=== PATIENT | female | born 1940 | race American Indian/Alaskan Native ===

== ENCOUNTER 2017-03-17 10:12 | Emergency (ER) | payer OTHER ==
[2017-03-17 10:34] VITALS: BP 138/84; PULSE 91; RESP 18; TEMP 97.9; O2SAT 97
--- NOTE | 2017-03-17 10:57 | C.PDOC ---
History Of Present Illness 76 y/o female c/o left arm pain and tingling described as "heat and tingling under her arm" for a few months. Pain is 8/10. Denies trauma or weakness. Time Seen by Provider: 03/17/17 10:50 Chief Complaint (Nursing): Upper Extremity Problem/Injury History Per: Patient History/Exam Limitations: no limitations Onset/Duration Of Symptoms: Days (Months) Current Symptoms Are (Timing): Still Present Quality: "Pain" Severity: Moderate Pain Scale Rating Of: 8 Recent travel outside of the [place]: No Additional History Per: Patient Past Medical History Reviewed: Historical Data, Nursing Documentation, Vital Signs Vital Signs: Last Vital Signs Temp 97.9 F 03/17/17 10:28 Pulse 91 H 03/17/17 10:28 Resp 18 03/17/17 10:28 BP 138/84 03/17/17 10:28 Pulse Ox 97 03/17/17 11:34 - Medical History PMH: Deep Vein Thrombosis Denies: Anemia, Chronic Kidney Disease - [facility] Procedures ENTERAL INFUSION OF CONCENTRATED NUT. SUBSTANCES (09/08/04) LG BOWEL STOMA CLOSURE (09/08/04) OTH LYSIS-PERITONEAL ADHES (09/08/04) PART LG BOWEL EXCIS NEC (09/08/04) RIGID PROCTOSIGMOIDOSCOPY (09/08/04) Family History: States: Unknown Family Hx - Social History Hx Tobacco Use: No Hx Alcohol Use: No Hx Substance Use: No - Immunization History Hx Tetanus Toxoid Vaccination: Yes Hx Influenza Vaccination: No Hx Pneumococcal Vaccination: Yes (UNSURE) Review Of Systems Constitutional: Negative for: Other (Trauma) Musculoskeletal: Positive for: Arm Pain (left arm pain ) Neurological: Positive for: Other (left arm tingling). Negative for: Weakness Physical Exam - Physical Exam Appears: Non-toxic, No Acute Distress Skin: Warm, Dry Head: Atraumatic, Normacephalic Neck: Normal ROM, No Midline Cervical Tenderness, No Paracervical Tenderness, Supple Cardiovascular: Rhythm Regular, No Murmur Respiratory: Normal Breath Sounds, No Rales, No Rhonchi, No Wheezing Extremity: Normal ROM (Bilateral upper extremities), Capillary Refill (<2secs) Pulses: Left Radial: Normal (Good radial, distal, and ulner pulses), Right Radial: Normal Neurological/Psych: Oriented x3, Normal Speech, Normal Cognition, Normal Motor ( Bilateral upper extremities. Good radial and medial nerve strength), Other (No focal deficit) ED Course And Treatment ECG: Interpreted By Me ECG Rhythm: Sinus Rhythm ECG Interpretation: Normal, No Acute Changes Interpretation Of ECG: nsr at 93 BPM,no ectopy,no acute sttw changes,axis and intervals wnl O2 Sat by Pulse Oximetry: 97 (RA) Pulse Ox Interpretation: Normal Medical Decision Making Medical Decision Making: Impression: * Left arm pain and tingling for a few months. Plans: * EKG DDx: Radial neuropathy Disposition - Disposition Referrals: [facility] [Outside] Disposition: HOME/ ROUTINE Disposition Time: 10:51 Condition: GOOD Additional Instructions: take anti inflammatory meds,muscle relaxants as directed Prescriptions: Baclofen [Lioresal] 10 mg PO TID #30 tab Naproxen [Naprosyn] 375 mg PO BID #20 tablet Instructions: Cervical Radiculopathy (ED) Forms: [employer] (Ugandan) Print Language: SYRIAN - Clinical Impression Clinical Impression: Cervical radiculopathy at C7 - Scribe Statement The provider has reviewed the documentation as recorded by the Scribe Elsi haddad All medical record entries made by the Vaishaliibe were at my direction and personally dictated by me. I have reviewed the chart and agree that the record accurately reflects my personal performance of the history, physical exam, medical decision making, and the department course for this patient. I have also personally directed, reviewed, and agree with the discharge instructions and disposition.
--- NOTE | 2017-03-18 21:16 | CARD ---
APPROVED REPORT EKG Measurement Heart [id number] <Conclusion> Normal sinus rhythm Normal ECG
== END 2017-03-17 11:06 | disposition home or self-care (01) ==
LOC: C.ER 10:12
DX: M54.12 Radiculopathy, cervical region (principal)

== ENCOUNTER 2017-06-19 20:03 | Emergency (ER) | payer OTHER ==
[2017-06-19 20:40] VITALS: RESP 20
--- NOTE | 2017-06-19 20:41 | C.PDOC ---
History Of Present Illness 76F presents with c/o pain in her left arm and left lateral portion of her chest ONLY when she moves her left arm. Pt states pain began 4 days ago and took Tylenol with no relief. Denies nausea, vomiting, fever or hx of smoking. Time Seen by Provider: 06/19/17 20:30 Chief Complaint (Nursing): Upper Extremity Problem/Injury History Per: Patient History/Exam Limitations: no limitations Onset/Duration Of Symptoms: Days (4) Current Symptoms Are (Timing): Still Present Quality: "Pain" Exacerbating Factor(s): Movement Recent travel outside of the [facility]: No Past Medical History Reviewed: Historical Data, Nursing Documentation, Vital Signs Vital Signs: Last Vital Signs Temp 98.4 F 06/19/17 20:37 Pulse 66 06/19/17 20:37 Resp 20 06/19/17 20:37 BP 164/94 H 06/19/17 20:37 Pulse Ox 99 06/19/17 23:03 - Medical History PMH: Deep Vein Thrombosis - [facility] Procedures ENTERAL INFUSION OF CONCENTRATED NUT. SUBSTANCES (09/08/04) LG BOWEL STOMA CLOSURE (09/08/04) OTH LYSIS-PERITONEAL ADHES (09/08/04) PART LG BOWEL EXCIS NEC (09/08/04) RIGID PROCTOSIGMOIDOSCOPY (09/08/04) Family History: States: Unknown Family Hx - Social History Hx Tobacco Use: No Hx Alcohol Use: No Hx Substance Use: No - Immunization History Hx Tetanus Toxoid Vaccination: Yes Hx Influenza Vaccination: No Hx Pneumococcal Vaccination: Yes (UNSURE) Review Of Systems Constitutional: Negative for: Fever Cardiovascular: Positive for: Chest Pain (left lateral portion of chest ONLY with movement of left arm) Respiratory: Negative for: Cough, Shortness of Breath Gastrointestinal: Negative for: Nausea, Vomiting, Abdominal Pain, Diarrhea Musculoskeletal: Positive for: Arm Pain (left arm ONLY whith movement) Neurological: Negative for: Weakness, Numbness, Change in Speech Physical Exam - Physical Exam Appears: Well, Non-toxic Skin: Warm, Dry Head: Atraumatic, Normacephalic Eye(s): bilateral: Normal Inspection Oral Mucosa: Moist Neck: Supple Chest: Symmetrical, Tenderness (Reducible pain with palpatation over left anterior lateral chest wall) Cardiovascular: Rhythm Regular Respiratory: No Accessory Muscle Use, No Rales, No Rhonchi, No Wheezing Gastrointestinal/Abdominal: Soft, No Tenderness Extremity: Tenderness (Left arm; ONLY with ROM of left arm) Neurological/Psych: Oriented x3, Normal Speech, Normal Cognition, Other (no focal deficits) ED Course And Treatment - Laboratory Results Result Diagrams: 06/19/17 21:51 06/19/17 21:51 O2 Sat by Pulse Oximetry: 99 (RA) Pulse Ox Interpretation: Normal Medical Decision Making Medical Decision Making: EKG Results: Sinus bradycardic at 56bpm. Normal axis. Normal intervals. No acute ischemia. cxr- naf 1215 the pt is resting quietly, no distress. I disc results with her and her daughter. given her pain is reproducible, only occurs with movement, and her studies here are unremarkable, I feel she can be safely discharged with close follow up. return precautions advised. EXAM: CT Angiography Chest With Intravenous Contrast EXAM DATE/TIME: 06/19/2017 9:39 PM CLINICAL HISTORY: 76 years old, female; Pain; Chest pain; Type not specified; Additional info: Cp HX dvt R/O pe TECHNIQUE: Axial computed tomographic angiography images of the chest with intravenous contrast using pulmonary embolism protocol. All CT scans at this facility use one or more dose reduction techniques, viz.: automated exposure control; ma/kV adjustment per patient size (including targeted exams where dose is matched to indication; i.e. head); or iterative reconstruction technique. MIP reconstructed images were created and reviewed. Coronal and sagittal reformatted images were created and reviewed. CONTRAST: 100 mL of [id number] administered intravenously. COMPARISON: Prior images are not available for review. Correlation is made with the report dated 11/18/14 FINDINGS: Heart, aorta and Pulmonary arteries: Heart size is normal.There is trace fluid in pericardial recesses.There is no aneurysm or dissection. There is perfusion of the arch vessels.There are no pulmonary emboli. Page 2 of 2 Lungs and pleural spaces: Trachea and main bronchi are patent.There is no pneumothorax. There is dependent atelectasis. There is focal elevation the right diaphragm with compressive atelectasis in the right middle lobe and portions of the right lower lobe. There is a 1.5 x 1 cm nodular opacity in the periphery of the lingula. There is minimal left retrocardiac atelectasis/ scarring. There are no effusions. Mediastinum: There are mildly prominent mediastinal nodes. There are no enlarged hilar nodes. The esophagus is unremarkable. There is a hiatal hernia. Thyroid: Thyroid is not optimally demonstrated. Bones/joints: Bony structures are osteopenic. There are degenerative changes. Soft tissues: unremarkable Upper abdomen: There are no acute abnormalities in the visualized portion of the abdomen. IMPRESSION: No aneurysm, dissection or pulmonary embolus; elevated right diaphragm with compressive atelectasis in right middle and lower lobes; persistent nodular opacity in the lingula, similar findings reported 11/18/14 Additional nonemergent findings as described above. No follow-up is necessary for patients with low or high risk of malignancy. Thank you for allowing us to participate in the care of your patient. Dictated and Authenticated by: Ghazala George MD 06/20/2017 12:05 AM Eastern Time ([place] & [place]) Disposition - Disposition Referrals: Pedro Oliva MD [Medical Doctor] - Disposition: HOME/ ROUTINE Disposition Time: 00:17 Condition: GOOD Additional Instructions: Please follow up with your doctor in the next week. Return to the ER for any worsening symptoms or for any other concerns. Prescriptions: Naproxen [Naprosyn] 500 mg PO Q12H PRN #10 tablet PRN Reason: Pain, Moderate (4-7) Instructions: Chest Pain (ED), Chest Wall Pain (ED) Forms: [facility] (Thai), General Discharge Instructions - Clinical Impression Clinical Impression: Chest pain - Scribe Statement The provider has reviewed the documentation as recorded by the Vaishaliibsherry Bledsoe All medical record entries made by the Vaishaliibsherry were at my direction and personally dictated by me. I have reviewed the chart and agree that the record accurately reflects my personal performance of the history, physical exam, medical decision making, and the department course for this patient. I have also personally directed, reviewed, and agree with the discharge instructions and disposition.
[2017-06-19 22:06] LABS: CALCIUM 7.8 mg/dl (8.6-10.4); GFR AFRICAN-AMERICAN > 60; GFR NON-AFRICAN AMERICAN > 60
[2017-06-19 22:18] LABS: ALB/GLOB RATIO 1.2 (1.0-2.1); ALBUMIN 3.6 g/dL (3.5-5.0); ALT/SGPT 21 U/L (9-52); AST/SGOT 32 U/L (14-36); BLOOD UREA NITROGEN 15 mg/dL (7-17)
[2017-06-19] MEDS ORDERED: Iodixanol 320 MG/ML 100 ML BOTTLE IV ONE (22:36)
[2017-06-19 23:02] LABS: BASO % 0.8 % (0.0-2.0); EOS # 0.1 K/uL (0.0-0.7); HEMOGLOBIN 11.9 g/dL (11.0-16.0); LYMPH # 2.3 K/uL (1.0-4.3); LYMPH % 46.1 % (20.0-40.0); MEAN CELL VOLUME 77.2 fL (81.0-99.0); MEAN CORPUSCULAR HEMOGLOBIN 25.6 pg (27.0-31.0); MEAN CORPUSCULAR HGB CONC 33.2 g/dL (33.0-37.0); MEAN PLATELET VOLUME 9.8 fL (7.2-11.7); MONO # 0.4 K/uL (0.0-0.8); MONO % 8.6 % (0.0-10.0); NEUT # 2.1 K/uL (1.8-7.0); NEUT % 42.5 % (50.0-75.0); NRBC % 0.3 % (0.0-2.0); RBC 4.66 Mil/uL (3.80-5.20); RED CELL DISTRIBUTION WIDTH 16.7 % (11.5-14.5); WHITE BLOOD COUNT 5.1 K/uL (4.8-10.8)
--- NOTE | 2017-06-20 00:06 | CT ---
EXAM: CT Angiography Chest With Intravenous Contrast EXAM DATE/TIME: 06/19/2017 9:39 PM CLINICAL HISTORY: 76 years old, female; Pain; Chest pain; Type not specified; Additional info: Cp HX dvt R/O pe TECHNIQUE: Axial computed tomographic angiography images of the chest with intravenous contrast using pulmonary embolism protocol. All CT scans at this facility use one or more dose reduction techniques, viz.: automated exposure control; ma/kV adjustment per patient size (including targeted exams where dose is matched to indication; i.e. head); or iterative reconstruction technique. MIP reconstructed images were created and reviewed. Coronal and sagittal reformatted images were created and reviewed. CONTRAST: 100 mL of [id number] administered intravenously. COMPARISON: Prior images are not available for review. Correlation is made with the report dated 11/18/14 FINDINGS: Heart, aorta and Pulmonary arteries: Heart size is normal.There is trace fluid in pericardial recesses.There is no aneurysm or dissection. There is perfusion of the arch vessels.There are no pulmonary emboli. Lungs and pleural spaces: Trachea and main bronchi are patent.There is no pneumothorax. There is dependent atelectasis. There is focal elevation the right diaphragm with compressive atelectasis in the right middle lobe and portions of the right lower lobe. There is a 1.5 x 1 cm nodular opacity in the periphery of the lingula. There is minimal left retrocardiac atelectasis/scarring. There are no effusions. Mediastinum: There are mildly prominent mediastinal nodes. There are no enlarged hilar nodes. The esophagus is unremarkable. There is a hiatal hernia. Thyroid: Thyroid is not optimally demonstrated. Bones/joints: Bony structures are osteopenic. There are degenerative changes. Soft tissues: unremarkable Upper abdomen: There are no acute abnormalities in the visualized portion of the abdomen. IMPRESSION: No aneurysm, dissection or pulmonary embolus; elevated right diaphragm with compressive atelectasis in right middle and lower lobes; persistent nodular opacity in the lingula, similar findings reported 11/18/14 Additional nonemergent findings as described above. No follow-up is necessary for patients with low or high risk of malignancy.
[2017-06-20 00:59] VITALS: BP 162/98; PULSE 75; TEMP 97.5; O2SAT 98
--- NOTE | 2017-06-20 08:33 | RAD ---
HISTORY: Chest pain COMPARISON: 05/04/2016 TECHNIQUE: Chest PA and lateral FINDINGS: LUNGS: No active pulmonary disease. PLEURA: No significant pleural effusion identified. No pneumothorax apparent. CARDIOVASCULAR: Normal. OSSEOUS STRUCTURES: No significant abnormalities. VISUALIZED UPPER ABDOMEN: Normal. OTHER FINDINGS: None. IMPRESSION: No active disease. No significant interval change compared to the prior examination(s).
--- NOTE | 2017-06-21 14:28 | CARD ---
APPROVED REPORT EKG Measurement Heart [id number] <Conclusion> Sinus bradycardia Otherwise normal ECG
== END 2017-06-20 01:08 | disposition home or self-care (01) ==
LOC: C.ER 20:03
DX: R07.9 Chest pain, unspecified (principal)
CPT/HCPCS: 71046; 71275; 80053; 84484; 85025; 93005; 96374; 99285; J1885; Q9967

== ENCOUNTER 2018-01-03 21:29 | Emergency (ER) | payer OTHER ==
[2018-01-03 22:27] VITALS: BP 136/87; PULSE 78; RESP 16; TEMP 97.8; O2SAT 99
--- NOTE | 2018-01-03 23:10 | C.PDOC ---
History Of Present Illness 77 y/o female presented to ED c/o right arm and right neck pain for the past few days. Neck pain exacerbated with movement of the right arm, described as a pulling tightness to area. Patient denies sore throat, URI sx, trauma, weakness , numbness, chest pain, shortness of breath. Time Seen by Provider: 01/03/18 22:39 Chief Complaint (Nursing): Upper Extremity Problem/Injury History Per: Patient History/Exam Limitations: no limitations Onset/Duration Of Symptoms: Days Current Symptoms Are (Timing): Still Present Quality: "Pain" Exacerbating Factor(s): Movement Recent travel outside of the [place]: No Past Medical History Reviewed: Historical Data, Nursing Documentation, Vital Signs Vital Signs: Last Vital Signs Temp 97.8 F 01/03/18 22:23 Pulse 78 01/03/18 22:23 Resp 16 01/03/18 22:23 BP 136/87 01/03/18 22:23 Pulse Ox 99 01/04/18 02:37 - Medical History PMH: Deep Vein Thrombosis Denies: Anemia, Chronic Kidney Disease Surgical History: No Surg Hx - [facility] Procedures ENTERAL INFUSION OF CONCENTRATED NUT. SUBSTANCES (09/08/04) LG BOWEL STOMA CLOSURE (09/08/04) OTH LYSIS-PERITONEAL ADHES (09/08/04) PART LG BOWEL EXCIS NEC (09/08/04) RIGID PROCTOSIGMOIDOSCOPY (09/08/04) Family History: States: No Known Family Hx - Social History Hx Tobacco Use: No Hx Alcohol Use: Yes Hx Substance Use: No - Immunization History Hx Tetanus Toxoid Vaccination: Yes Hx Influenza Vaccination: No Hx Pneumococcal Vaccination: Yes (UNSURE) Review Of Systems Cardiovascular: Negative for: Chest Pain Respiratory: Negative for: Shortness of Breath Neurological: Negative for: Weakness, Numbness Physical Exam - Physical Exam Appears: Non-toxic Skin: Normal Color, Warm, Dry Head: Atraumatic, Normacephalic Eye(s): bilateral: Normal Inspection Throat: Normal Neck: Paracervical Tenderness (lateral right neck), No Other (palpable mass, swelling or erythema) Lymphatic: No Adenopathy Chest: Symmetrical, No Tenderness Cardiovascular: Rhythm Regular Respiratory: Normal Breath Sounds, No Rales, No Rhonchi, No Wheezing Extremity: Normal ROM (x4), Capillary Refill (<2 seconds), Other (ROM right arm causes pain) Pulses: Left Radial: Normal, Right Radial: Normal Neurological/Psych: Oriented x3, Normal Speech, Normal Motor, Normal Sensation Gait: Steady ED Course And Treatment O2 Sat by Pulse Oximetry: 99 (RA) Pulse Ox Interpretation: Normal Progress Note: Flexeril and motrin were ordered. Patient is resting comfortably , tolerating PO, with no numbness or weakness of the extremities. Will discharge home with instructions to follow up with PMD. Patient accompanied by relative and was discharged under care of relative. Disposition Counseled Patient/Family Regarding: Diagnosis, Need For Followup, Rx Given - Disposition Referrals: Private doctor, PMD [Other] Disposition: HOME/ ROUTINE Disposition Time: 23:07 Condition: STABLE Additional Instructions: Take medications as prescribed for pain Apply warm compress to area Return to ER if worse Prescriptions: Cyclobenzaprine [Cyclobenzaprine HCl] 10 mg PO HS #4 tab Ibuprofen [Motrin] 600 mg PO Q8 #14 tab Instructions: Neck Sprain (DC) Forms: [employer] (Togolese) - Clinical Impression Clinical Impression: Cervical muscle strain - PA / [employer] / Resident Statement MD/DO has reviewed & agrees with the documentation as recorded. - Scribe Statement The provider has reviewed the documentation as recorded by the Scribe Ricky Sharma All medical record entries made by the Mitchel were at my direction and personally dictated by me. I have reviewed the chart and agree that the record accurately reflects my personal performance of the history, physical exam, medical decision making, and the department course for this patient. I have also personally directed, reviewed, and agree with the discharge instructions and disposition.
== END 2018-01-03 23:33 | disposition home or self-care (01) ==
LOC: C.ER 21:29
DX: S16.1XXA Strain of muscle, fascia and tendon at neck level, initial encounter (principal); X58.XXXA Exposure to other specified factors, initial encounter; Y92.9 Unspecified place or not applicable

== ENCOUNTER 2018-01-20 18:03 | Inpatient (IN) | payer OTHER ==
[2018-01-20 18:29] VITALS: BMI 43.4
--- NOTE | 2018-01-20 19:16 | C.PDOC ---
"History Of Present Illness 77 y/o female brought to ER by ambulance for evaluation of shortness of breath which occurred in the afternoon today. Patient states that she has history of blood clots and she is taking Aspirin. Denies having chest pain, fever, and chills. Of note, patient reports that she has history of colon cancer in remission after chemotherapy and surgery. Time Seen by Provider: 01/20/18 18:32 Chief Complaint (Nursing): Shortness Of Breath History Per: Patient History/Exam Limitations: no limitations Onset/Duration Of Symptoms: Hrs Current Symptoms Are (Timing): Still Present Severity: Moderate Past Medical History Reviewed: Historical Data, Nursing Documentation, Vital Signs Vital Signs: Last Vital Signs Temp 98.2 F 01/20/18 22:53 Pulse 112 H 01/20/18 22:53 Resp 28 H 01/20/18 22:53 BP 172/102 H 01/20/18 22:39 Pulse Ox 96 01/20/18 22:39 - Medical History PMH: Deep Vein Thrombosis Denies: Anemia, Chronic Kidney Disease Other Surgeries: Hx of surgeries - [facility] Procedures ENTERAL INFUSION OF CONCENTRATED NUT. SUBSTANCES (09/08/04) LG BOWEL STOMA CLOSURE (09/08/04) OTH LYSIS-PERITONEAL ADHES (09/08/04) PART LG BOWEL EXCIS NEC (09/08/04) RIGID PROCTOSIGMOIDOSCOPY (09/08/04) Family History: States: No Known Family Hx - Social History Hx Tobacco Use: No Hx Alcohol Use: Yes Hx Substance Use: No - Immunization History Hx Tetanus Toxoid Vaccination: Yes Hx Influenza Vaccination: Yes Hx Pneumococcal Vaccination: No (UNSURE) Review Of Systems Except As Marked, All Systems Reviewed And Found Negative. Constitutional: Negative for: Fever, Chills Cardiovascular: Negative for: Chest Pain Respiratory: Positive for: Shortness of Breath. Negative for: Cough Physical Exam - Physical Exam Appears: Non-toxic, No Acute Distress Skin: Normal Color, Warm, Dry Head: Atraumatic, Normacephalic Eye(s): bilateral: Normal Inspection Nose: Normal Oral Mucosa: Moist Neck: Supple Chest: Symmetrical Cardiovascular: Rhythm Regular Respiratory: Normal Breath Sounds, No Rales, No Rhonchi, No Wheezing Gastrointestinal/Abdominal: Normal Exam, Soft, No Tenderness, No Guarding, No Rebound Extremity: Normal ROM, Tenderness (left calf tenderness) Neurological/Psych: Oriented x3, Normal Speech ED Course And Treatment - Laboratory Results Result Diagrams: 01/20/18 19:32 01/20/18 19:32 ECG: Interpreted By Me ECG Rhythm: Sinus Tachycardia Interpretation Of ECG: TWI lateral leads, normal intervals, normal axis Rate From EC O2 Sat by Pulse Oximetry: 91 (RA) Pulse Ox Interpretation: Abnormal - CT Scan/US CTA Chest Other Rad Studies (CT/US): Read By Radiologist CT/US Interpretation: [facility]. [facility] Radiology [facility]. Preliminary Radiology Report with Addendum Call: [phone]. assistance Online chat: [email or web address]. Name: THIERNO JOHNSTON Age: 77Years F Date: 2017. Requesting Physician: Noemy Worley : 1940. [facility] Procedure Ordered As Accession Number of Images. CTA CHEST CT ANGIO CHEST PE PROTOCOL [id number]. Provided Clinical History: SOB. Addendum created by Keven Holley DO on 01/20/2018 9:13 PM Eastern Time ([place]). THIS REPORT CONTAINS FINDINGS THAT MAY BE CRITICAL TO PATIENT CARE. The findings. were verbally communicated via telephone conference with Noemy Worley at 9:13 PM EDT on. 01/20/2018. The findings were acknowledged and understood. Initial Report created on 01/20/2018 9:01 PM Eastern Time ([place]). EXAM: CT Angiography Chest With Intravenous Contrast. CLINICAL HISTORY: 77 years old, female; Signs and symptoms; Shortness of breath; Additional info: SOB. TECHNIQUE: Axial computed tomographic angiography images of the chest with intravenous contrast using. pulmonary embolism protocol. All CT scans at this facility use at least one of these dose optimization. techniques: automated exposure control; mA and/or kV adjustment per patient size (includes targeted. exams where dose is matched to clinical indication); or iterative reconstruction. MIP reconstructed images were created and reviewed. Coronal and sagittal reformatted images were created and reviewed. CONTRAST: 100 mL of visipaque 320 administered intravenously. COMPARISON: No relevant prior studies available. FINDINGS: Pulmonary arteries : Large filling defect within the distal left main pulmonary artery extending into. both the upper and lower lobe lobar arteries. Subsegmental pulmonary filling defect within the apical. posterior segment left upper lobe (axial image 81). Aorta: No acute findings. No thoracic aortic aneurysm. Lungs: Filling defect within the right upper lobe lobar artery extending into the anterior, posterior,. and apical segmental pulmonary arteries. Filling defects within the right middle lobe medial and. lateral segmental pulmonary arteries. Additional filling defect within the inferior lingular segment left. THIERNO JOHNSTON | Preliminary Radiology Report. CONFIDENTIALITY STATEMENT. This report is intended only for the use of the referring physician, and only in accordance with law, If you received this in error, call [phone]. Page 2 of 2. upper lobe segmental artery. Filling defects in the left lower lobe lobar pulmonary artery extending. into the proximal anteromedial, posterior, and lateral basilar segmental left lower lobe pulmonary. arteries. Subpleural reticular opacities within the dependent aspect of the lower lobes may represent. subsegmental atelectasis or scarring. Biapical scarring. 3 mm solid left lower lobe pulmonary nodule. (axial image 73 ). Pleural space: Normal. No significant effusion. No pneumothorax. Heart: Findings suggestive of right heart strain with RV/LV ratio of 1.2. No pericardial effusion. Mediastinum: A moderate hiatal hernia is present. Bones/ joints: Osteoarthrosis at both glenohumeral and acromioclavicular joints. Diffuse thoracic. spondylosis. No acute osseous abnormality. No dislocation. Soft tissues: Normal. Lymph nodes: Normal. No enlarged lymph nodes. IMPRESSION : 1. Multiple pulmonary arterial filling defects consistent with pulmonary emboli. These involve the. distal left main, right and left lobar, and several segmental and subsegmental pulmonary arteries as. described above. 2. Evidence of right heart strain with RV/LV ratio of 1.2. 3. Solid left lower lobe pulmonary nodule measuring 3 mm. For low-risk patients, no follow-up is. necessary. For high-risk patients (smoking history or other known risk factors) an optional chest CT. at 12 months could be performed. 4. Other nonacute findings as detailed above. Thank you for allowing us to participate in the care of your patient. Dictated and Authenticated by: Keven Holley DO. 2017 9:01 PM Eastern Time ([place]) Medical Decision Making Medical Decision Making: Plan: --Labs --ECG --CT- Angio Chest Patient placed on 2L O2 via NC. Pulse ox 95-96% on O2, and patient states that she feels better. Labs done. Creatinine normal for CTA. CTA chest done as patient is at risk for PE given history of cancer and of DVT' s not on anticoagulants. 2112- [facility] called to discuss CTA results, bilateral PE noted. heparin 5000u bolus and 18u/kg/hr gtt ordered. Results and need for admission discussed with patient. Case discussed with Dr. Garnett admitting for Dr. Oliva. Would like patient admitted to ICU, and Dr. Marinelli for pulm consult. Case discussed with Dr. Cespedes who accepts the patient. Advised calling IR as well. On re-eval, vitals- BP 136 systolic. Pulse ox 95% on 2L O2. HR 120's. Case discussed with Dr. Marinelli for pulm consult. Case discussed with IR Dr. Stanford, after reviewing the patient's CTA images he does not feel that she is a good candidate for intervention as she does not have enough occlusive clot burden. Can be re-consulted if necessary. Disposition - Disposition Disposition: HOSPITALIZED Disposition Time: 22:11 Condition: FAIR - Clinical Impression Clinical Impression: Bilateral pulmonary embolism - Scribe Statement The provider has reviewed the documentation as recorded by the Mitchel Neil Provider Attestation: All medical record entries made by the Vaishaliibsherry were at my direction and personally dictated by me. I have reviewed the chart and agree that the record accurately reflects my personal performance of the history, physical exam, medical decision making, and the department course for this patient. I have also personally directed, reviewed, and agree with the discharge instructions and disposition."
[2018-01-20 19:38] LABS: BASO % 0.6 % (0.0-2.0); EOS % 0.6 % (0.0-4.0); HEMOGLOBIN 12.8 g/dL (11.0-16.0); LYMPH # 1.5 K/uL (1.0-4.3); MEAN CORPUSCULAR HEMOGLOBIN 24.9 pg (27.0-31.0); MEAN CORPUSCULAR HGB CONC 32.3 g/dL (33.0-37.0); MEAN PLATELET VOLUME 8.8 fL (7.2-11.7); MONO # 0.4 K/uL (0.0-0.8); MONO % 6.3 % (0.0-10.0); NEUT # 4.4 K/uL (1.8-7.0); NEUT % 68.5 % (50.0-75.0); NRBC % 0.2 % (0.0-2.0); RBC 5.14 Mil/uL (3.80-5.20); WHITE BLOOD COUNT 6.4 K/uL (4.8-10.8)
[2018-01-20 19:49] LABS: ALB/GLOB RATIO 1.3 (1.0-2.1); ALBUMIN 4.2 g/dL (3.5-5.0); ALT/SGPT 23 U/L (9-52); AST/SGOT 28 U/L (14-36); BLOOD UREA NITROGEN 18 mg/dL (7-17); GFR AFRICAN-AMERICAN > 60; GFR NON-AFRICAN AMERICAN > 60
[2018-01-20] MEDS ORDERED: Iodixanol 320 MG/ML 100 ML BOTTLE IV ONE (20:05)
[2018-01-20] MEDS ORDERED: Sodium Chloride 0.9% 1,000 ML ONE (20:39)
[2018-01-20] MEDS ORDERED: Heparin25000 units/250ml 1/2NS 25,000 UNITS/250 ML BAG IV PRN (21:15)
[2018-01-20] MEDS ORDERED: Heparin 5,000 UNITS in Sodium Chloride 0.9% 500 ML IV ONE (21:16)
[2018-01-20 21:48] LABS: INR 1.1; PROTHROMBIN TIME 12.2 SECONDS (9.7-12.2)
[2018-01-20 22:46] LABS: SQUAMOUS EPITHIAL < 1 /hpf (0-5); URINE BACTERIA RARE (<OCC); URINE BILIRUBIN NEGATIVE (NEGATIVE); URINE BLOOD NEGATIVE (NEGATIVE); URINE CLARITY Clear (Clear); URINE COLOR Colorless (YELLOW); URINE GLUCOSE (UA) NORMAL (Normal); URINE LEUKOCYTE ESTERASE NEG Leu/uL (Negative); URINE PROTEIN NEGATIVE (NEGATIVE); URINE UROBILINOGEN NORMAL mg/dL (0.2-1.0)
--- NOTE | 2018-01-20 22:55 | CP.CCUPN ---
"CCU Subjective - Physician Review Subjective (Free Text): 01/20/18 The Patient was seen and examined at the bedside, Medical records reviewed, and management issues were discussed and formulated with the house staff. Events reviewed 77 Y/O F with previous history of femoral vein Deep Vein Thrombosis and history of colon cancer in remission S/P chemotherapy and surgery Who was brought to ER by ambulance for evaluation of shortness of breath which occurred in the afternoon today. Patient states that she has history of blood clots and she is taking Aspirin. In the ER, she underwent Chest Ct angiogram showing Multiple pulmonary arterial filling defects consistent with pulmonary emboli. Vital sighs stable except for tachycardia with HR 110s, SBP 150s and saturation 92-98% on nasal cannula Denies having chest pain, fever/chills, leg pain or swellings. She received 5000U IV Heparin bolus, started on Heparin drip. IR consulted in the ER ror the acute non-occlusive PE with RV strain and the possible role of catheter directed TPA, will hold off fow now, Patient Clinically and hemodynamically stable Will call for EKOS in AM Pt AAO x3. Alert, follows commands, speaks full sentence Breathing unlabored. Other Rad Studies (CT/US): Read By Radiologist CT/US Interpretation: [facility]. [facility] Radiology [facility]. Preliminary Radiology Report with Addendum Call: [phone]. assistance Online chat: [email or web address]. Name: THIERNO JOHNSTON Age: 77Years F Date: 2017. Requesting Physician: Noemy Worley : 1940. [facility] Procedure Ordered As Accession Number of Images. CTA CHEST CT ANGIO CHEST PE PROTOCOL [id number]. Provided Clinical History: SOB. Addendum created by Keven Holley DO on 01/20/2018 9:13 PM Eastern Time ([place]). THIS REPORT CONTAINS FINDINGS THAT MAY BE CRITICAL TO PATIENT CARE. The findings. were verbally communicated via telephone conference with Noemy Worley at 9:13 PM EDT on. 01/20/2018. The findings were acknowledged and understood. Initial Report created on 01/20/2018 9:01 PM Eastern Time ([place]). EXAM: CT Angiography Chest With Intravenous Contrast. CLINICAL HISTORY: 77 years old, female; Signs and symptoms; Shortness of breath; Additional info: SOB. TECHNIQUE: Axial computed tomographic angiography images of the chest with intravenous contrast using. pulmonary embolism protocol. All CT scans at this facility use at least one of these dose optimization. techniques: automated exposure control; mA and/or kV adjustment per patient size (includes targeted. exams where dose is matched to clinical indication); or iterative reconstruction. MIP reconstructed images were created and reviewed. Coronal and sagittal reformatted images were created and reviewed. CONTRAST: 100 mL of visipaque 320 administered intravenously. COMPARISON: No relevant prior studies available. FINDINGS: Pulmonary arteries : Large filling defect within the distal left main pulmonary artery extending into. both the upper and lower lobe lobar arteries. Subsegmental pulmonary filling defect within the apical. posterior segment left upper lobe (axial image 81). Aorta: No acute findings. No thoracic aortic aneurysm. Lungs: Filling defect within the right upper lobe lobar artery extending into the anterior, posterior,. and apical segmental pulmonary arteries. Filling defects within the right middle lobe medial and. lateral segmental pulmonary arteries. Additional filling defect within the inferior lingular segment left. THIERNO JOHNSTON | Preliminary Radiology Report. CONFIDENTIALITY STATEMENT. This report is intended only for the use of the referring physician, and only in accordance with law, If you received this in error, call [phone]. Page 2 of 2. upper lobe segmental artery. Filling defects in the left lower lobe lobar pulmonary artery extending. into the proximal anteromedial, posterior, and lateral basilar segmental left lower lobe pulmonary. arteries. Subpleural reticular opacities within the dependent aspect of the lower lobes may represent. subsegmental atelectasis or scarring. Biapical scarring. 3 mm solid left lower lobe pulmonary nodule. (axial image 73 ). Pleural space: Normal. No significant effusion. No pneumothorax. Heart: Findings suggestive of right heart strain with RV/LV ratio of 1.2. No pericardial effusion. Mediastinum: A moderate hiatal hernia is present. Bones/ joints: Osteoarthrosis at both glenohumeral and acromioclavicular joints. Diffuse thoracic. spondylosis. No acute osseous abnormality. No dislocation. Soft tissues: Normal. Lymph nodes: Normal. No enlarged lymph nodes. IMPRESSION : 1. Multiple pulmonary arterial filling defects consistent with pulmonary emboli. These involve the. distal left main, right and left lobar, and several segmental and subsegmental pulmonary arteries as. described above. 2. Evidence of right heart strain with RV/LV ratio of 1.2. 3. Solid left lower lobe pulmonary nodule measuring 3 mm. For low-risk patients, no follow-up is. necessary. For high-risk patients (smoking history or other known risk factors) an optional chest CT. at 12 months could be performed. 4. Other nonacute findings as detailed above. Thank you for allowing us to participate in the care of your patient. Dictated and Authenticated by: Keven Holley DO. 2017 9:01 PM Eastern Time ([place]) CCU Objective - Vital Signs / Intake & Output Vital Signs (Last 4 hours): Vital Signs Pulse Resp BP Pulse Ox 01/20/18 22:39 114 H 35 H 172/102 H 96 01/20/18 22:07 115 H 33 H 166/103 H 95 01/20/18 21:42 91 L 01/20/18 20:34 103 H 20 135/91 H 94 L Intake and Output (Last 8hrs): Intake & Output 01/20/18 01/20/18 01/20/18 06:59 14:59 22:59 Weight 230 lb - Physical Exam Physical Exam Limitations: Positive for: Clinical Condition Head: Positive for: Atraumatic, Normocephalic Pupils: Positive for: PERRL. Negative for: Sluggish, Non-Reactive Extroacular Muscles: Positive for: EOMI. Negative for: Gaze Palsy, Entrapment Conjunctiva: Positive for: Normal. Negative for: Injected, Icteric Mouth: Positive for: Moist Mucous Membranes Pharnyx: Positive for: Normal Nose (Internal): Positive for: Normal Inspection Neck: Positive for: Normal Range of Motion, Trachea Midline. Negative for: Meningeal Signs, MIDLINE TENDERNESS, Paraspinal Tenderness, JVD, Lymphadenopathy , Bruit, Other Respiratory/Chest: Positive for: Clear to Auscultation, Good Air Exchange, Decreased Breath Sounds. Negative for: Respiratory Distress, Accessory Muscle Use, Wheezes, Rales, Retracting, Rhonchi, Tachypneic Cardiovascular: Positive for: Regular Rate and Rhythm, Normal S1, S2, Peripheal Pulses Present, Tachycardic. Negative for: Murmurs, Irregular Rhythm, Bradycardic Abdomen: Positive for: Normal Bowel Sounds. Negative for: Tenderness, Distention, Peritoneal Signs, Rebound, Guarding Upper Extremity: Positive for: Normal Inspection, NORMAL PULSES, Capillary Refill < 2s. Negative for: Cyanosis, Edema Lower Extremity: Positive for: Edema, NORMAL PULSES, Capillary Refill < 2 s. Negative for: Normal Inspection, CALF TENDERNESS Neurological: Positive for: GCS=15, CN II-XII Intact, Speech Normal, Motor Func Grossly Intact, Normal Sensory Function Psychiatric: Positive for: Alert, Oriented x 3, Normal Insight - Medications Active Medications: Active Medications Generic Name Dose Route Start Last Admin Trade Name Freq PRN Reason Stop Dose Admin Heparin Sodium/Sodium Chloride 25,000 units in 250 mls @ 18.779 mls/hr 21:15 01/20/18 21:42 Heparin 04898 Units/250ml 1/2 Normal Saline IV 18.779 mls/hr .[id number] PRN Administration ADJUST RATE PER PROTOCOL Protocol 18 UNITS/KG/HR - Patient Studies Lab Studies: Lab Studies 01/20/18 01/20/18 01/20/18 Range/Units 22:28 21:22 19:32 WBC (4.8-10.8) K/uL RBC (3.80-5.20) Mil/uL Hgb (11.0-16.0) g/dL Hct (34.0-47.0) % MCV (81.0-99.0) fL MCH (27.0-31.0) pg MCHC (33.0-37.0) g/dL RDW (11.5-14.5) % Plt Count (130-400) K/uL MPV (7.2-11.7) fL Neut % (Auto) (50.0-75.0) % Lymph % (Auto) (20.0-40.0) % Garrett % (Auto) (0.0-10.0) % Eos % (Auto) (0.0-4.0) % Baso % (Auto) (0.0-2.0) % Neut # (Auto) (1.8-7.0) K/uL Lymph # (Auto) (1.0-4.3) K/uL Garrett # (Auto) (0.0-0.8) K/uL Eos # (Auto) (0.0-0.7) K/uL Baso # (Auto) (0.0-0.2) K/uL PT 12.2 (9.7-12.2) SECONDS INR 1.1 APTT 33 (21-34) SECONDS Sodium 142 (132-148) mmol/L Potassium 4.3 (3.6-5.2) mmol/L Chloride 102 (98-107) mmol/L Carbon Dioxide 29 (22-30) mmol/L Anion Gap 15 (10-20) BUN 18 H (7-17) mg/dL Creatinine 0.9 (0.7-1.2) mg/dL Est GFR ( Amer) > 60 Est GFR (Non-Af Amer) > 60 Random Glucose 105 (65-105) mg/dL Calcium 9.0 (8.6-10.4) mg/dl Total Bilirubin 0.6 (0.2-1.3) mg/dL AST 28 (14-36) U/L ALT 23 (9-52) U/L Alkaline Phosphatase 108 (38-126) U/L Troponin I 0.2870 H* (0.00-0.120) ng/mL Total Protein 7.4 (6.3-8.3) g/dL Albumin 4.2 (3.5-5.0) g/dL Globulin 3.3 (2.2-3.9) gm/dL Albumin/Globulin Ratio 1.3 (1.0-2.1) Urine Color Colorless (YELLOW) Urine Clarity Clear (Clear) Urine pH 6.0 (5.0-8.0) Ur Specific [place] 1.015 (1.003-1.030) Urine Protein Negative (NEGATIVE) mg/dL Urine Glucose (UA) Normal (Normal) mg/dL Urine Ketones Negative (NEGATIVE) mg/dL Urine Blood Negative (NEGATIVE) Urine Nitrate Negative (NEGATIVE) Urine Bilirubin Negative (NEGATIVE) Urine Urobilinogen Normal (0.2-1.0) mg/dL Ur Leukocyte Esterase Neg (Negative) Sujata/uL Urine WBC (Auto) < 1 (0-5) /hpf Urine RBC (Auto) < 1 (0-3) /hpf Ur Squamous Epith Cells < 1 (0-5) /hpf Urine Bacteria Rare (<OCC) 01/20/ Range/Units 19:32 WBC 6.4 (4.8-10.8) K/uL RBC 5.14 (3.80-5.20) Mil/uL Hgb 12.8 (11.0-16.0) g/dL Hct 39.5 (34.0-47.0) % MCV 77.0 L (81.0-99.0) fL MCH 24.9 L (27.0-31.0) pg MCHC 32.3 L (33.0-37.0) g/dL RDW 17.0 H (11.5-14.5) % Plt Count 161 (130-400) K/uL MPV 8.8 (7.2-11.7) fL Neut % (Auto) 68.5 (50.0-75.0) % Lymph % (Auto) 24.0 (20.0-40.0) % Garrett % (Auto) 6.3 (0.0-10.0) % Eos % (Auto) 0.6 (0.0-4.0) % Baso % (Auto) 0.6 (0.0-2.0) % Neut # (Auto) 4.4 (1.8-7.0) K/uL Lymph # (Auto) 1.5 (1.0-4.3) K/uL Garrett # (Auto) 0.4 (0.0-0.8) K/uL Eos # (Auto) 0.0 (0.0-0.7) K/uL Baso # (Auto) 0.0 (0.0-0.2) K/uL PT (9.7-12.2) SECONDS INR APTT (21-34) SECONDS Sodium (132-148) mmol/L Potassium (3.6-5.2) mmol/L Chloride (98-107) mmol/L Carbon Dioxide (22-30) mmol/L Anion Gap (10-20) BUN (7-17) mg/dL Creatinine (0.7-1.2) mg/dL Est GFR ( Amer) Est GFR (Non-Af Amer) Random Glucose (65-105) mg/dL Calcium (8.6-10.4) mg/dl Total Bilirubin (0.2-1.3) mg/dL AST (14-36) U/L ALT (9-52) U/L Alkaline Phosphatase (38-126) U/L Troponin I (0.00-0.120) ng/mL Total Protein (6.3-8.3) g/dL Albumin (3.5-5.0) g/dL Globulin (2.2-3.9) gm/dL Albumin/Globulin Ratio (1.0-2.1) Urine Color (YELLOW) Urine Clarity (Clear) Urine pH (5.0-8.0) Ur Specific [place] (1.003-1.030) Urine Protein (NEGATIVE) mg/dL Urine Glucose (UA) (Normal) mg/dL Urine Ketones (NEGATIVE) mg/dL Urine Blood (NEGATIVE) Urine Nitrate (NEGATIVE) Urine Bilirubin (NEGATIVE) Urine Urobilinogen (0.2-1.0) mg/dL Ur Leukocyte Esterase (Negative) Sujata/uL Urine WBC (Auto) (0-5) /hpf Urine RBC (Auto) (0-3) /hpf Ur Squamous Epith Cells (0-5) /hpf Urine Bacteria (<OCC) Laboratory Results - last 24 hr 01/20/18 01/20/18 01/20/18 19:32 19:32 21:22 WBC 6.4 RBC 5.14 Hgb 12.8 Hct 39.5 MCV 77.0 L MCH 24.9 L MCHC 32.3 L RDW 17.0 H Plt Count 161 MPV 8.8 Neut % (Auto) 68.5 Lymph % (Auto) 24.0 Garrett % (Auto) 6.3 Eos % (Auto) 0.6 Baso % (Auto) 0.6 Neut # (Auto) 4.4 Lymph # (Auto) 1.5 Garrett # (Auto) 0.4 Eos # (Auto) 0.0 Baso # (Auto) 0.0 PT 12.2 INR 1.1 APTT 33 Sodium 142 Potassium 4.3 Chloride 102 Carbon Dioxide 29 Anion Gap 15 BUN 18 H Creatinine 0.9 Est GFR ( Amer) > 60 Est GFR (Non-Af Amer) > 60 Random Glucose 105 Calcium 9.0 Total Bilirubin 0.6 AST 28 ALT 23 Alkaline Phosphatase 108 Troponin I 0.2870 H* Total Protein 7.4 Albumin 4.2 Globulin 3.3 Albumin/Globulin Ratio 1.3 Urine Color Urine Clarity Urine pH Ur Specific [place] Urine Protein Urine Glucose (UA) Urine Ketones Urine Blood Urine Nitrate Urine Bilirubin Urine Urobilinogen Ur Leukocyte Esterase Urine WBC (Auto) Urine RBC (Auto) Ur Squamous Epith Cells Urine Bacteria 01/20/18 22:28 WBC RBC Hgb Hct MCV MCH MCHC RDW Plt Count MPV Neut % (Auto) Lymph % (Auto) Garrett % (Auto) Eos % (Auto) Baso % (Auto) Neut # (Auto) Lymph # (Auto) Garrett # (Auto) Eos # (Auto) Baso # (Auto) PT INR APTT Sodium Potassium Chloride Carbon Dioxide Anion Gap BUN Creatinine Est GFR ( Amer) Est GFR (Non-Af Amer) Random Glucose Calcium Total Bilirubin AST ALT Alkaline Phosphatase Troponin I Total Protein Albumin Globulin Albumin/Globulin Ratio Urine Color Colorless Urine Clarity Clear Urine pH 6.0 Ur Specific [place] 1.015 Urine Protein Negative Urine Glucose (UA) Normal Urine Ketones Negative Urine Blood Negative Urine Nitrate Negative Urine Bilirubin Negative Urine Urobilinogen Normal Ur Leukocyte Esterase Neg Urine WBC (Auto) < 1 Urine RBC (Auto) < 1 Ur Squamous Epith Cells < 1 Urine Bacteria Rare EKG/Cardiology Studies: Cardiology / EKG Studies 01/20/18 18:26 ELECTROCARDIOGRAM Stat Comment: Mode Of Transportation: BED Reason For Exam: SOB 01/20/18 19:03 ELECTROCARDIOGRAM Stat Comment: Mode Of Transportation: BED Reason For Exam: SOB Review of Systems - Constitutional Constitutional: absent: Fever, Chills, Sweats, Weakness, Malaise - Cardiovascular Cardiovascular: absent: Chest Pain, Chest Pain at Rest, Chest Pain with Activity , Claudication, Diaphoresis - Respiratory Respiratory: Dyspnea, Dyspnea on Exertion. absent: Cough, Hemoptysis, Wheezing , Snoring - Gastrointestinal Gastrointestinal: absent: Abdominal Pain, Coffee Ground Emesis, Nausea, Vomiting Critical Care Progress Note - Extremities/Vascular Does the Patient have a Central Venous Catheter?: No Does the Patient need a Central Venous Catheter?: No Does the Patient have a Garcia Catheter?: No Does the Patient need a Garcia Catheter?: No Assessment/Plan (1) Bilateral pulmonary embolism Current Visit: Yes Status: Acute Priority: High (2) Abnormal EKG Current Visit: Yes Status: Acute Priority: High (3) Atypical chest pain Current Visit: Yes Status: Acute Priority: High (4) Dvt femoral (deep venous thrombosis) Current Visit: No Status: Acute Priority: Medium - Assessment and Plan (Free Text) Assessment: Acute bilateral PE Likely in the setting of colon cancer (+b/l DVT). Heparin drip Vs Lovenox 1mg/kg BID until INR therapeutic (goal INR 2-3) Warfarin 5mg qHS. Titrate to goal INR 2-3 Pain control with oxycodone 5mg q6hr PRN ECHO EKOS, consult in AM Consider coagulopathic workup Physical therapy and Occupational therapy to evaluate risk of falls and protective strategies. Treat with full A/C for minimum of 6 monhs unless bleeding risk outweighs benefit. In light of H/O Colon cancer then treatment should be continued while malignancy is active, If this is not the first episode of thromboembolic events then life long AC recommended."
[2018-01-21] MEDS: Sodium Chloride 0.9% 1,000 ML IV SCH ×2 (02:23→20:25)
[2018-01-21 04:38] LABS: BASO % 0.4 % (0.0-2.0); EOS % 0.4 % (0.0-4.0); HEMOGLOBIN 12.3 g/dL (11.0-16.0); LYMPH # 1.7 K/uL (1.0-4.3); LYMPH % 26.3 % (20.0-40.0); MEAN CELL VOLUME 76.1 fL (81.0-99.0); MEAN CORPUSCULAR HEMOGLOBIN 24.7 pg (27.0-31.0); MEAN CORPUSCULAR HGB CONC 32.4 g/dL (33.0-37.0); MEAN PLATELET VOLUME 7.8 fL (7.2-11.7); MONO # 0.5 K/uL (0.0-0.8); MONO % 7.2 % (0.0-10.0); NEUT # 4.3 K/uL (1.8-7.0); NEUT % 65.7 % (50.0-75.0); NRBC % 0.1 % (0.0-2.0); RBC 4.96 Mil/uL (3.80-5.20); WHITE BLOOD COUNT 6.6 K/uL (4.8-10.8)
[2018-01-21 05:21] LABS: ALB/GLOB RATIO 1.3 (1.0-2.1); ALBUMIN 3.7 g/dL (3.5-5.0); ALT/SGPT 30 U/L (9-52); AST/SGOT 20 U/L (14-36); BLOOD UREA NITROGEN 13 mg/dL (7-17); CALCIUM 8.8 mg/dl (8.6-10.4); GFR AFRICAN-AMERICAN > 60; GFR NON-AFRICAN AMERICAN > 60
--- NOTE | 2018-01-21 08:04 | CP.CCUPN ---
<KhoaVenus - Last Filed: 01/21/18 10:17> CCU Subjective - Physician Review Events Since Last Encounter (Free Text): PGY-3 ICU progress note 01/21/18 10:17 Patient was admitted overnight with PE after presenting with dyspnea. Patient states since admission she's been feeling better. The sob has improved. no cp, no abdominal pain, nausea or diarrhea. No fever or chills. Critical Care Time Spent (in minutes): 45 CCU Objective - Vital Signs / Intake & Output Vital Signs (Last 4 hours): Vital Signs on 2 litter nasal cannula Temp Pulse Resp BP Pulse Ox 01/21/18 07:50 89 17 97 01/21/18 07:00 97.9 F 81 21 157/90 H 98 01/21/18 06:00 83 22 150/86 01/21/18 05:00 87 24 154/94 H 97 Intake and Output (Last 8hrs): Intake & Output 01/20/18 01/21/18 01/21/18 22:59 06:59 14:59 Intake Total 337 Output Total 1100 Balance -763 Weight 230 lb 229 lb 4.492 oz Intake: Intake, IV Amount 337 Left Forearm 250 Right Forearm 87 Output: Urine 1100 Urine, Voided 1100 Other: Voiding Method Bedpan - Physical Exam Head: Positive for: Atraumatic, Normocephalic Pupils: Positive for: PERRL. Negative for: Sluggish, Non-Reactive Extroacular Muscles: Positive for: EOMI. Negative for: Gaze Palsy, Entrapment Conjunctiva: Positive for: Normal. Negative for: Injected, Icteric Mouth: Positive for: Moist Mucous Membranes Pharnyx: Positive for: Normal Nose (Internal): Positive for: Normal Inspection Neck: Positive for: Normal Range of Motion, Trachea Midline. Negative for: Meningeal Signs, MIDLINE TENDERNESS, Paraspinal Tenderness, JVD, Lymphadenopathy , Bruit, Other Respiratory/Chest: Positive for: Clear to Auscultation, Good Air Exchange, Decreased Breath Sounds. Negative for: Respiratory Distress, Accessory Muscle Use, Wheezes, Rales, Retracting, Rhonchi, Tachypneic Cardiovascular: Positive for: Regular Rate and Rhythm, Normal S1, S2, Peripheal Pulses Present, Tachycardic. Negative for: Murmurs, Irregular Rhythm, Bradycardic Abdomen: Positive for: Normal Bowel Sounds. Negative for: Tenderness, Distention, Peritoneal Signs, Rebound, Guarding Upper Extremity: Positive for: Normal Inspection, NORMAL PULSES, Capillary Refill < 2s. Negative for: Cyanosis, Edema Lower Extremity: Positive for: Edema, NORMAL PULSES, Capillary Refill < 2 s. Negative for: Normal Inspection, CALF TENDERNESS Neurological: Positive for: GCS=15, CN II-XII Intact, Speech Normal, Motor Func Grossly Intact, Normal Sensory Function Psychiatric: Positive for: Alert, Oriented x 3, Normal Insight - Medications Active Medications: Active Medications Generic Name Dose Route Start Last Admin Trade Name Freq PRN Reason Stop Dose Admin Cyclobenzaprine HCl 10 mg 01/21/18 22:00 Flexeril PO HS NICOLE Heparin Sodium/Sodium Chloride 25,000 units in 250 mls @ 18.779 mls/hr 21:15 01/21/18 06:15 Heparin 11537 Units/250ml 1/2 Normal Saline IV 15 units/kg/hr .[id number] PRN 15.649 mls/hr ADJUST RATE PER PROTOCOL Titration Protocol 18 UNITS/KG/HR Sodium Chloride 1,000 mls @ 50 mls/hr 01/20/18 23:45 01/21/18 02:23 Sodium Chloride 0.9% IV 50 mls/hr .Q20H NICOLE Administration Multivitamins tab 01/21/18 10:00 Hexavitamin PO DAILY NICOLE - Patient Studies Lab Studies: Lab Studies 01/21/18 01/21/18 01/21/18 Range/Units 06:10 04:33 04:33 WBC 6.6 (4.8-10.8) K/uL RBC 4.96 (3.80-5.20) Mil/uL Hgb 12.3 (11.0-16.0) g/dL Hct 37.8 (34.0-47.0) % MCV 76.1 L (81.0-99.0) fL MCH 24.7 L (27.0-31.0) pg MCHC 32.4 L (33.0-37.0) g/dL RDW 17.0 H (11.5-14.5) % Plt Count 139 (130-400) K/uL MPV 7.8 (7.2-11.7) fL Neut % (Auto) 65.7 (50.0-75.0) % Lymph % (Auto) 26.3 (20.0-40.0) % [place] % (Auto) 7.2 (0.0-10.0) % Eos % (Auto) 0.4 (0.0-4.0) % Baso % (Auto) 0.4 (0.0-2.0) % Neut # (Auto) 4.3 (1.8-7.0) K/uL Lymph # (Auto) 1.7 (1.0-4.3) K/uL [place] # (Auto) 0.5 (0.0-0.8) K/uL Eos # (Auto) 0.0 (0.0-0.7) K/uL Baso # (Auto) 0.0 (0.0-0.2) K/uL PT (9.7-12.2) SECONDS INR APTT > 400 H* D (21-34) SECONDS Sodium 144 (132-148) mmol/L Potassium 4.0 (3.6-5.2) mmol/L Chloride 108 H (98-107) mmol/L Carbon Dioxide 25 (22-30) mmol/L Anion Gap 15 (10-20) BUN 13 (7-17) mg/dL Creatinine 0.7 (0.7-1.2) mg/dL Est GFR ( Amer) > 60 Est GFR (Non-Af Amer) > 60 Random Glucose 122 H (65-105) mg/dL Calcium 8.8 (8.6-10.4) mg/dl Phosphorus 3.8 (2.5-4.5) mg/dL Magnesium 2.0 (1.6-2.3) mg/dL Total Bilirubin 0.6 (0.2-1.3) mg/dL AST 20 (14-36) U/L ALT 30 (9-52) U/L Alkaline Phosphatase 84 (38-126) U/L Troponin I 0.7450 H* (0.00-0.120) ng/mL Total Protein 6.4 (6.3-8.3) g/dL Albumin 3.7 (3.5-5.0) g/dL Globulin 2.7 (2.2-3.9) gm/dL Albumin/Globulin Ratio 1.3 (1.0-2.1) Urine Color (YELLOW) Urine Clarity (Clear) Urine pH (5.0-8.0) Ur Specific [place] (1.003-1.030) Urine Protein (NEGATIVE) mg/dL Urine Glucose (UA) (Normal) mg/dL Urine Ketones (NEGATIVE) mg/dL Urine Blood (NEGATIVE) Urine Nitrate (NEGATIVE) Urine Bilirubin (NEGATIVE) Urine Urobilinogen (0.2-1.0) mg/dL Ur Leukocyte Esterase (Negative) Sujata/uL Urine WBC (Auto) (0-5) /hpf Urine RBC (Auto) (0-3) /hpf Ur Squamous Epith Cells (0-5) /hpf Urine Bacteria (<OCC) 01/20/18 01/20/18 01/20/18 Range/Units 22:28 21:22 19:32 WBC (4.8-10.8) K/uL RBC (3.80-5.20) Mil/uL Hgb (11.0-16.0) g/dL Hct (34.0-47.0) % MCV (81.0-99.0) fL MCH (27.0-31.0) pg MCHC (33.0-37.0) g/dL RDW (11.5-14.5) % Plt Count (130-400) K/uL MPV (7.2-11.7) fL Neut % (Auto) (50.0-75.0) % Lymph % (Auto) (20.0-40.0) % [place] % (Auto) (0.0-10.0) % Eos % (Auto) (0.0-4.0) % Baso % (Auto) (0.0-2.0) % Neut # (Auto) (1.8-7.0) K/uL Lymph # (Auto) (1.0-4.3) K/uL [place] # (Auto) (0.0-0.8) K/uL Eos # (Auto) (0.0-0.7) K/uL Baso # (Auto) (0.0-0.2) K/uL PT 12.2 (9.7-12.2) SECONDS INR 1.1 APTT 33 (21-34) SECONDS Sodium 142 (132-148) mmol/L Potassium 4.3 (3.6-5.2) mmol/L Chloride 102 (98-107) mmol/L Carbon Dioxide 29 (22-30) mmol/L Anion Gap 15 (10-20) BUN 18 H (7-17) mg/dL Creatinine 0.9 (0.7-1.2) mg/dL Est GFR ( Amer) > 60 Est GFR (Non-Af Amer) > 60 Random Glucose 105 (65-105) mg/dL Calcium 9.0 (8.6-10.4) mg/dl Phosphorus (2.5-4.5) mg/dL Magnesium (1.6-2.3) mg/dL Total Bilirubin 0.6 (0.2-1.3) mg/dL AST 28 (14-36) U/L ALT 23 (9-52) U/L Alkaline Phosphatase 108 (38-126) U/L Troponin I 0.2870 H* (0.00-0.120) ng/mL Total Protein 7.4 (6.3-8.3) g/dL Albumin 4.2 (3.5-5.0) g/dL Globulin 3.3 (2.2-3.9) gm/dL Albumin/Globulin Ratio 1.3 (1.0-2.1) Urine Color Colorless (YELLOW) Urine Clarity Clear (Clear) Urine pH 6.0 (5.0-8.0) Ur Specific [place] 1.015 (1.003-1.030) Urine Protein Negative (NEGATIVE) mg/dL Urine Glucose (UA) Normal (Normal) mg/dL Urine Ketones Negative (NEGATIVE) mg/dL Urine Blood Negative (NEGATIVE) Urine Nitrate Negative (NEGATIVE) Urine Bilirubin Negative (NEGATIVE) Urine Urobilinogen Normal (0.2-1.0) mg/dL Ur Leukocyte Esterase Neg (Negative) Sujata/uL Urine WBC (Auto) < 1 (0-5) /hpf Urine RBC (Auto) < 1 (0-3) /hpf Ur Squamous Epith Cells < 1 (0-5) /hpf Urine Bacteria Rare (<OCC) 01/20/18 Range/Units 19:32 WBC 6.4 (4.8-10.8) K/uL RBC 5.14 (3.80-5.20) Mil/uL Hgb 12.8 (11.0-16.0) g/dL Hct 39.5 (34.0-47.0) % MCV 77.0 L (81.0-99.0) fL MCH 24.9 L (27.0-31.0) pg MCHC 32.3 L (33.0-37.0) g/dL RDW 17.0 H (11.5-14.5) % Plt Count 161 (130-400) K/uL MPV 8.8 (7.2-11.7) fL Neut % (Auto) 68.5 (50.0-75.0) % Lymph % (Auto) 24.0 (20.0-40.0) % [place] % (Auto) 6.3 (0.0-10.0) % Eos % (Auto) 0.6 (0.0-4.0) % Baso % (Auto) 0.6 (0.0-2.0) % Neut # (Auto) 4.4 (1.8-7.0) K/uL Lymph # (Auto) 1.5 (1.0-4.3) K/uL [place] # (Auto) 0.4 (0.0-0.8) K/uL Eos # (Auto) 0.0 (0.0-0.7) K/uL Baso # (Auto) 0.0 (0.0-0.2) K/uL PT (9.7-12.2) SECONDS INR APTT (21-34) SECONDS Sodium (132-148) mmol/L Potassium (3.6-5.2) mmol/L Chloride (98-107) mmol/L Carbon Dioxide (22-30) mmol/L Anion Gap (10-20) BUN (7-17) mg/dL Creatinine (0.7-1.2) mg/dL Est GFR ( Amer) Est GFR (Non-Af Amer) Random Glucose (65-105) mg/dL Calcium (8.6-10.4) mg/dl Phosphorus (2.5-4.5) mg/dL Magnesium (1.6-2.3) mg/dL Total Bilirubin (0.2-1.3) mg/dL AST (14-36) U/L ALT (9-52) U/L Alkaline Phosphatase (38-126) U/L Troponin I (0.00-0.120) ng/mL Total Protein (6.3-8.3) g/dL Albumin (3.5-5.0) g/dL Globulin (2.2-3.9) gm/dL Albumin/Globulin Ratio (1.0-2.1) Urine Color (YELLOW) Urine Clarity (Clear) Urine pH (5.0-8.0) Ur Specific [place] (1.003-1.030) Urine Protein (NEGATIVE) mg/dL Urine Glucose (UA) (Normal) mg/dL Urine Ketones (NEGATIVE) mg/dL Urine Blood (NEGATIVE) Urine Nitrate (NEGATIVE) Urine Bilirubin (NEGATIVE) Urine Urobilinogen (0.2-1.0) mg/dL Ur Leukocyte Esterase (Negative) Sujata/uL Urine WBC (Auto) (0-5) /hpf Urine RBC (Auto) (0-3) /hpf Ur Squamous Epith Cells (0-5) /hpf Urine Bacteria (<OCC) Laboratory Results - last 24 hr 01/20/18 01/20/18 01/20/18 19:32 19:32 21:22 WBC 6.4 RBC 5.14 Hgb 12.8 Hct 39.5 MCV 77.0 L MCH 24.9 L MCHC 32.3 L RDW 17.0 H Plt Count 161 MPV 8.8 Neut % (Auto) 68.5 Lymph % (Auto) 24.0 [place] % (Auto) 6.3 Eos % (Auto) 0.6 Baso % (Auto) 0.6 Neut # (Auto) 4.4 Lymph # (Auto) 1.5 [place] # (Auto) 0.4 Eos # (Auto) 0.0 Baso # (Auto) 0.0 PT 12.2 INR 1.1 APTT 33 Sodium 142 Potassium 4.3 Chloride 102 Carbon Dioxide 29 Anion Gap 15 BUN 18 H Creatinine 0.9 Est GFR ( Amer) > 60 Est GFR (Non-Af Amer) > 60 Random Glucose 105 Calcium 9.0 Phosphorus Magnesium Total Bilirubin 0.6 AST 28 ALT 23 Alkaline Phosphatase 108 Troponin I 0.2870 H* Total Protein 7.4 Albumin 4.2 Globulin 3.3 Albumin/Globulin Ratio 1.3 Urine Color Urine Clarity Urine pH Ur Specific [place] Urine Protein Urine Glucose (UA) Urine Ketones Urine Blood Urine Nitrate Urine Bilirubin Urine Urobilinogen Ur Leukocyte Esterase Urine WBC (Auto) Urine RBC (Auto) Ur Squamous Epith Cells Urine Bacteria 01/20/18 01/21/18 01/21/18 22:28 04:33 04:33 WBC 6.6 RBC 4.96 Hgb 12.3 Hct 37.8 MCV 76.1 L MCH 24.7 L MCHC 32.4 L RDW 17.0 H Plt Count 139 MPV 7.8 Neut % (Auto) 65.7 Lymph % (Auto) 26.3 [place] % (Auto) 7.2 Eos % (Auto) 0.4 Baso % (Auto) 0.4 Neut # (Auto) 4.3 Lymph # (Auto) 1.7 [place] # (Auto) 0.5 Eos # (Auto) 0.0 Baso # (Auto) 0.0 PT INR APTT Sodium 144 Potassium 4.0 Chloride 108 H Carbon Dioxide 25 Anion Gap 15 BUN 13 Creatinine 0.7 Est GFR ( Amer) > 60 Est GFR (Non-Af Amer) > 60 Random Glucose 122 H Calcium 8.8 Phosphorus 3.8 Magnesium 2.0 Total Bilirubin 0.6 AST 20 ALT 30 Alkaline Phosphatase 84 Troponin I 0.7450 H* Total Protein 6.4 Albumin 3.7 Globulin 2.7 Albumin/Globulin Ratio 1.3 Urine Color Colorless Urine Clarity Clear Urine pH 6.0 Ur Specific [place] 1.015 Urine Protein Negative Urine Glucose (UA) Normal Urine Ketones Negative Urine Blood Negative Urine Nitrate Negative Urine Bilirubin Negative Urine Urobilinogen Normal Ur Leukocyte Esterase Neg Urine WBC (Auto) < 1 Urine RBC (Auto) < 1 Ur Squamous Epith Cells < 1 Urine Bacteria Rare 01/21/18 06:10 WBC RBC Hgb Hct MCV MCH MCHC RDW Plt Count MPV Neut % (Auto) Lymph % (Auto) [place] % (Auto) Eos % (Auto) Baso % (Auto) Neut # (Auto) Lymph # (Auto) [place] # (Auto) Eos # (Auto) Baso # (Auto) PT INR APTT > 400 H* D Sodium Potassium Chloride Carbon Dioxide Anion Gap BUN Creatinine Est GFR ( Amer) Est GFR (Non-Af Amer) Random Glucose Calcium Phosphorus Magnesium Total Bilirubin AST ALT Alkaline Phosphatase Troponin I Total Protein Albumin Globulin Albumin/Globulin Ratio Urine Color Urine Clarity Urine pH Ur Specific [place] Urine Protein Urine Glucose (UA) Urine Ketones Urine Blood Urine Nitrate Urine Bilirubin Urine Urobilinogen Ur Leukocyte Esterase Urine WBC (Auto) Urine RBC (Auto) Ur Squamous Epith Cells Urine Bacteria EKG/Cardiology Studies: Cardiology / EKG Studies 01/20/18 18:26 ELECTROCARDIOGRAM Stat Comment: Mode Of Transportation: BED Reason For Exam: SOB 01/20/18 19:03 ELECTROCARDIOGRAM Stat Comment: Mode Of Transportation: BED Reason For Exam: SOB Review of Systems - Review of Systems All systems: reviewed and no additional remarkable complaints except Critical Care Progress Note - Ventilator Checklist Head of Bed 30 Degrees: Yes - Prophylaxis GI Prophylaxis GI: PPI - Prophylaxis DVT Prophylaxis DVT: Heparin SQ (heparin drip for pe ) - Nutrition Nutrition: Nutrition Category Date Time Status Heart Healthy Diet [DIET] Diets 01/21/18 Breakfast Active Assessment/Plan - Assessment and Plan (Free Text) Assessment: Patient is a 77 y/o with pmh of colon cancer s/p resection and chemo, h/o chronic tatiana DVT presenting with shortness of breath and was found to have extensive tatiana upper and lower lobe PE. Patient was hemodynamically stable, thus patient was started on heparin drip and admitted to ICU further management and monitoring. Plan: Neuro: stable at baseline Pulm: Extensive tatiana PE of the upper and lower lobe with evidence of right heart strain on labs - Will discontinue heparin drip and start eliquis 10 mg bid for 7 days and 5 mg bid after 7 days - Patient was giving options of anticoags, would prefer NAOCs, understands risk of taking eliquis including bleeding and the fact that there is no referral. - cardiac echo ordered to evaluate for right sided heart strain and pulm htn - Lower extremities U/S ordered for DVT - flat plate ordered to evaluate for ivc filter - Nasal cannula prn for O2 sat above 90% Incidental 3 mm nodular density in the left lung- pulm consulted, patient will need f/u CT chest in 6-12 months Cardiac: Troponin elevated due to right heart strain from PE, echo ordered Maintian MAP above 65%. Gi: PPi for gi prophylaxis, HH diet. Renal: renal function stable, will continue to monitor ID: Low probability for sepsis, will continue to monitor and prevent Endo: Will maintain euglycemia Heme: h/h stable, will continue to monitor DVT prophylaxis: started on eliquis for tatiana PE Patient seen, examined and case discussed with the attending. JENNIFER Molina PGY-3. - Date & Time Date: 01/21/18 Time: 10:35 <Luis Eduardo Arizmendi M - Last Filed: 01/21/18 15:23> CCU Objective - Vital Signs / Intake & Output Vital Signs (Last 4 hours): Vital Signs Temp Pulse Resp BP Pulse Ox 01/21/18 13:40 100 H 22 97 01/21/18 13:00 98 H 20 125/68 99 01/21/18 12:00 97.7 F 108 H 21 123/60 99 Intake and Output (Last 8hrs): Intake & Output 01/21/18 01/21/18 01/21/18 06:59 14:59 22:59 Intake Total 337 695.0 Output Total 1100 Balance -763 695.0 Weight 229 lb 4.492 oz Intake: Intake, IV Amount 337 375.0 Left Forearm 250 350 Right Forearm 87 25.0 Oral 320 Output: Urine 1100 Urine, Voided 1100 Other: Voiding Method Bedpan - Medications Active Medications: Active Medications Generic Name Dose Route Start Last Admin Trade Name Freq PRN Reason Stop Dose Admin Apixaban 10 mg 01/21/18 10:00 01/21/18 11:56 Eliquis PO 01/24/18 10:01 10 mg BID NICOLE Administration Aspirin 81 mg 01/22/18 10:00 Aspirin Chewable PO DAILY NICOLE Cyclobenzaprine HCl 10 mg 01/21/18 22:00 Flexeril PO HS NICOLE Sodium Chloride 1,000 mls @ 50 mls/hr 01/20/18 23:45 01/21/18 02:23 Sodium Chloride 0.9% IV 50 mls/hr .Q20H NICOLE Administration Multivitamins 1 tab 01/21/18 10:00 01/21/18 10:08 Hexavitamin PO 1 tab DAILY NICOLE Administration Pantoprazole Sodium 40 mg 01/21/18 10:00 01/21/18 10:08 Protonix Ec Tab PO 40 mg DAILY NIOCLE Administration - Patient Studies Lab Studies: Lab Studies 01/21/18 01/21/18 01/21/18 Range/Units 06:10 04:33 04:33 WBC 6.6 (4.8-10.8) K/uL RBC 4.96 (3.80-5.20) Mil/uL Hgb 12.3 (11.0-16.0) g/dL Hct 37.8 (34.0-47.0) % MCV 76.1 L (81.0-99.0) fL MCH 24.7 L (27.0-31.0) pg MCHC 32.4 L (33.0-37.0) g/dL RDW 17.0 H (11.5-14.5) % Plt Count 139 (130-400) K/uL MPV 7.8 (7.2-11.7) fL Neut % (Auto) 65.7 (50.0-75.0) % Lymph % (Auto) 26.3 (20.0-40.0) % [place] % (Auto) 7.2 (0.0-10.0) % Eos % (Auto) 0.4 (0.0-4.0) % Baso % (Auto) 0.4 (0.0-2.0) % Neut # (Auto) 4.3 (1.8-7.0) K/uL Lymph # (Auto) 1.7 (1.0-4.3) K/uL [place] # (Auto) 0.5 (0.0-0.8) K/uL Eos # (Auto) 0.0 (0.0-0.7) K/uL Baso # (Auto) 0.0 (0.0-0.2) K/uL PT (9.7-12.2) SECONDS INR APTT > 400 H* D (21-34) SECONDS Sodium 144 (132-148) mmol/L Potassium 4.0 (3.6-5.2) mmol/L Chloride 108 H (98-107) mmol/L Carbon Dioxide 25 (22-30) mmol/L Anion Gap 15 (10-20) BUN 13 (7-17) mg/dL Creatinine 0.7 (0.7-1.2) mg/dL Est GFR ( Amer) > 60 Est GFR (Non-Af Amer) > 60 Random Glucose 122 H (65-105) mg/dL Calcium 8.8 (8.6-10.4) mg/dl Phosphorus 3.8 (2.5-4.5) mg/dL Magnesium 2.0 (1.6-2.3) mg/dL Total Bilirubin 0.6 (0.2-1.3) mg/dL AST 20 (14-36) U/L ALT 30 (9-52) U/L Alkaline Phosphatase 84 (38-126) U/L Troponin I 0.7450 H* (0.00-0.120) ng/mL Total Protein 6.4 (6.3-8.3) g/dL Albumin 3.7 (3.5-5.0) g/dL Globulin 2.7 (2.2-3.9) gm/dL Albumin/Globulin Ratio 1.3 (1.0-2.1) Urine Color (YELLOW) Urine Clarity (Clear) Urine pH (5.0-8.0) Ur Specific [place] (1.003-1.030) Urine Protein (NEGATIVE) mg/dL Urine Glucose (UA) (Normal) mg/dL Urine Ketones (NEGATIVE) mg/dL Urine Blood (NEGATIVE) Urine Nitrate (NEGATIVE) Urine Bilirubin (NEGATIVE) Urine Urobilinogen (0.2-1.0) mg/dL Ur Leukocyte Esterase (Negative) Sujata/uL Urine WBC (Auto) (0-5) /hpf Urine RBC (Auto) (0-3) /hpf Ur Squamous Epith Cells (0-5) /hpf Urine Bacteria (<OCC) 01/20/18 01/20/18 01/20/18 Range/Units 22:28 21:22 19:32 WBC (4.8-10.8) K/uL RBC (3.80-5.20) Mil/uL Hgb (11.0-16.0) g/dL Hct (34.0-47.0) % MCV (81.0-99.0) fL MCH (27.0-31.0) pg MCHC (33.0-37.0) g/dL RDW (11.5-14.5) % Plt Count (130-400) K/uL MPV (7.2-11.7) fL Neut % (Auto) (50.0-75.0) % Lymph % (Auto) (20.0-40.0) % [place] % (Auto) (0.0-10.0) % Eos % (Auto) (0.0-4.0) % Baso % (Auto) (0.0-2.0) % Neut # (Auto) (1.8-7.0) K/uL Lymph # (Auto) (1.0-4.3) K/uL [place] # (Auto) (0.0-0.8) K/uL Eos # (Auto) (0.0-0.7) K/uL Baso # (Auto) (0.0-0.2) K/uL PT 12.2 (9.7-12.2) SECONDS INR 1.1 APTT 33 (21-34) SECONDS Sodium 142 (132-148) mmol/L Potassium 4.3 (3.6-5.2) mmol/L Chloride 102 (98-107) mmol/L Carbon Dioxide 29 (22-30) mmol/L Anion Gap 15 (10-20) BUN 18 H (7-17) mg/dL Creatinine 0.9 (0.7-1.2) mg/dL Est GFR ( Amer) > 60 Est GFR (Non-Af Amer) > 60 Random Glucose 105 (65-105) mg/dL Calcium 9.0 (8.6-10.4) mg/dl Phosphorus (2.5-4.5) mg/dL Magnesium (1.6-2.3) mg/dL Total Bilirubin 0.6 (0.2-1.3) mg/dL AST 28 (14-36) U/L ALT 23 (9-52) U/L Alkaline Phosphatase 108 (38-126) U/L Troponin I 0.2870 H* (0.00-0.120) ng/mL Total Protein 7.4 (6.3-8.3) g/dL Albumin 4.2 (3.5-5.0) g/dL Globulin 3.3 (2.2-3.9) gm/dL Albumin/Globulin Ratio 1.3 (1.0-2.1) Urine Color Colorless (YELLOW) Urine Clarity Clear (Clear) Urine pH 6.0 (5.0-8.0) Ur Specific [place] 1.015 (1.003-1.030) Urine Protein Negative (NEGATIVE) mg/dL Urine Glucose (UA) Normal (Normal) mg/dL Urine Ketones Negative (NEGATIVE) mg/dL Urine Blood Negative (NEGATIVE) Urine Nitrate Negative (NEGATIVE) Urine Bilirubin Negative (NEGATIVE) Urine Urobilinogen Normal (0.2-1.0) mg/dL Ur Leukocyte Esterase Neg (Negative) Sujata/uL Urine WBC (Auto) < 1 (0-5) /hpf Urine RBC (Auto) < 1 (0-3) /hpf Ur Squamous Epith Cells < 1 (0-5) /hpf Urine Bacteria Rare (<OCC) 01/20/18 Range/Units 19:32 WBC 6.4 (4.8-10.8) K/uL RBC 5.14 (3.80-5.20) Mil/uL Hgb 12.8 (11.0-16.0) g/dL Hct 39.5 (34.0-47.0) % MCV 77.0 L (81.0-99.0) fL MCH 24.9 L (27.0-31.0) pg MCHC 32.3 L (33.0-37.0) g/dL RDW 17.0 H (11.5-14.5) % Plt Count 161 (130-400) K/uL MPV 8.8 (7.2-11.7) fL Neut % (Auto) 68.5 (50.0-75.0) % Lymph % (Auto) 24.0 (20.0-40.0) % [place] % (Auto) 6.3 (0.0-10.0) % Eos % (Auto) 0.6 (0.0-4.0) % Baso % (Auto) 0.6 (0.0-2.0) % Neut # (Auto) 4.4 (1.8-7.0) K/uL Lymph # (Auto) 1.5 (1.0-4.3) K/uL [place] # (Auto) 0.4 (0.0-0.8) K/uL Eos # (Auto) 0.0 (0.0-0.7) K/uL Baso # (Auto) 0.0 (0.0-0.2) K/uL PT (9.7-12.2) SECONDS INR APTT (21-34) SECONDS Sodium (132-148) mmol/L Potassium (3.6-5.2) mmol/L Chloride (98-107) mmol/L Carbon Dioxide (22-30) mmol/L Anion Gap (10-20) BUN (7-17) mg/dL Creatinine (0.7-1.2) mg/dL Est GFR ( Amer) Est GFR (Non-Af Amer) Random Glucose (65-105) mg/dL Calcium (8.6-10.4) mg/dl Phosphorus (2.5-4.5) mg/dL Magnesium (1.6-2.3) mg/dL Total Bilirubin (0.2-1.3) mg/dL AST (14-36) U/L ALT (9-52) U/L Alkaline Phosphatase (38-126) U/L Troponin I (0.00-0.120) ng/mL Total Protein (6.3-8.3) g/dL Albumin (3.5-5.0) g/dL Globulin (2.2-3.9) gm/dL Albumin/Globulin Ratio (1.0-2.1) Urine Color (YELLOW) Urine Clarity (Clear) Urine pH (5.0-8.0) Ur Specific [place] (1.003-1.030) Urine Protein (NEGATIVE) mg/dL Urine Glucose (UA) (Normal) mg/dL Urine Ketones (NEGATIVE) mg/dL Urine Blood (NEGATIVE) Urine Nitrate (NEGATIVE) Urine Bilirubin (NEGATIVE) Urine Urobilinogen (0.2-1.0) mg/dL Ur Leukocyte Esterase (Negative) Sujata/uL Urine WBC (Auto) (0-5) /hpf Urine RBC (Auto) (0-3) /hpf Ur Squamous Epith Cells (0-5) /hpf Urine Bacteria (<OCC) Laboratory Results - last 24 hr 01/20/18 01/20/18 01/20/18 19:32 19:32 21:22 WBC 6.4 RBC 5.14 Hgb 12.8 Hct 39.5 MCV 77.0 L MCH 24.9 L MCHC 32.3 L RDW 17.0 H Plt Count 161 MPV 8.8 Neut % (Auto) 68.5 Lymph % (Auto) 24.0 [place] % (Auto) 6.3 Eos % (Auto) 0.6 Baso % (Auto) 0.6 Neut # (Auto) 4.4 Lymph # (Auto) 1.5 [place] # (Auto) 0.4 Eos # (Auto) 0.0 Baso # (Auto) 0.0 PT 12.2 INR 1.1 APTT 33 Sodium 142 Potassium 4.3 Chloride 102 Carbon Dioxide 29 Anion Gap 15 BUN 18 H Creatinine 0.9 Est GFR ( Amer) > 60 Est GFR (Non-Af Amer) > 60 Random Glucose 105 Calcium 9.0 Phosphorus Magnesium Total Bilirubin 0.6 AST 28 ALT 23 Alkaline Phosphatase 108 Troponin I 0.2870 H* Total Protein 7.4 Albumin 4.2 Globulin 3.3 Albumin/Globulin Ratio 1.3 Urine Color Urine Clarity Urine pH Ur Specific [place] Urine Protein Urine Glucose (UA) Urine Ketones Urine Blood Urine Nitrate Urine Bilirubin Urine Urobilinogen Ur Leukocyte Esterase Urine WBC (Auto) Urine RBC (Auto) Ur Squamous Epith Cells Urine Bacteria 01/20/18 01/21/18 01/21/18 22:28 04:33 04:33 WBC 6.6 RBC 4.96 Hgb 12.3 Hct 37.8 MCV 76.1 L MCH 24.7 L MCHC 32.4 L RDW 17.0 H Plt Count 139 MPV 7.8 Neut % (Auto) 65.7 Lymph % (Auto) 26.3 [place] % (Auto) 7.2 Eos % (Auto) 0.4 Baso % (Auto) 0.4 Neut # (Auto) 4.3 Lymph # (Auto) 1.7 [place] # (Auto) 0.5 Eos # (Auto) 0.0 Baso # (Auto) 0.0 PT INR APTT Sodium 144 Potassium 4.0 Chloride 108 H Carbon Dioxide 25 Anion Gap 15 BUN 13 Creatinine 0.7 Est GFR ( Amer) > 60 Est GFR (Non-Af Amer) > 60 Random Glucose 122 H Calcium 8.8 Phosphorus 3.8 Magnesium 2.0 Total Bilirubin 0.6 AST 20 ALT 30 Alkaline Phosphatase 84 Troponin I 0.7450 H* Total Protein 6.4 Albumin 3.7 Globulin 2.7 Albumin/Globulin Ratio 1.3 Urine Color Colorless Urine Clarity Clear Urine pH 6.0 Ur Specific [place] 1.015 Urine Protein Negative Urine Glucose (UA) Normal Urine Ketones Negative Urine Blood Negative Urine Nitrate Negative Urine Bilirubin Negative Urine Urobilinogen Normal Ur Leukocyte Esterase Neg Urine WBC (Auto) < 1 Urine RBC (Auto) < 1 Ur Squamous Epith Cells < 1 Urine Bacteria Rare 01/21/18 06:10 WBC RBC Hgb Hct MCV MCH MCHC RDW Plt Count MPV Neut % (Auto) Lymph % (Auto) [place] % (Auto) Eos % (Auto) Baso % (Auto) Neut # (Auto) Lymph # (Auto) [place] # (Auto) Eos # (Auto) Baso # (Auto) PT INR APTT > 400 H* D Sodium Potassium Chloride Carbon Dioxide Anion Gap BUN Creatinine Est GFR ( Amer) Est GFR (Non-Af Amer) Random Glucose Calcium Phosphorus Magnesium Total Bilirubin AST ALT Alkaline Phosphatase Troponin I Total Protein Albumin Globulin Albumin/Globulin Ratio Urine Color Urine Clarity Urine pH Ur Specific [place] Urine Protein Urine Glucose (UA) Urine Ketones Urine Blood Urine Nitrate Urine Bilirubin Urine Urobilinogen Ur Leukocyte Esterase Urine WBC (Auto) Urine RBC (Auto) Ur Squamous Epith Cells Urine Bacteria EKG/Cardiology Studies: Cardiology / EKG Studies 01/20/18 18:26 ELECTROCARDIOGRAM Stat Comment: Mode Of Transportation: BED Reason For Exam: SOB 01/20/18 19:03 ELECTROCARDIOGRAM Stat Comment: Mode Of Transportation: BED Reason For Exam: SOB Critical Care Progress Note - Nutrition Nutrition: Nutrition Category Date Time Status Heart Healthy Diet [DIET] Diets 01/21/18 Breakfast Active Assessment/Plan - Assessment and Plan (Free Text) Plan: Patient seen and examined at bedside with above resident. 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 Ivette was informed of her diagnosis and possible treatment protocol. After significant informed consent, patient provided assent for NOAC - eliquis a AC of choice. -Start eliquis -PT/OT -oob to chair -PAtient remains hemodynamically stable -at risk of CAD: start asa, statin and av lola brit[place] as BP toelrates Patient toelrating oral diet. Patient is hemodynamically stable.
--- NOTE | 2018-01-21 08:24 | CP.PCM.HP ---
History of Present Illness - History of Present Illness History of Present Illness: CC: SOB 77 y/o with morbid obesity, Colon cancer s/p resection and Chemo. patient yesterday had sudden episode of dizziness and shortness of breath, [facility] and found (+) PE. She was admitted to ICU Present on Admission - Present on Admission Any Indicators Present on Admission: Yes History of DVT/PE: No History of Uncontrolled Diabetes: No Urinary Catheter: No Decubitus Ulcer Present: No Review of Systems - Review of Systems Systems not reviewed;Unavailable: Acuity of Condition - Constitutional Constitutional: Snoring. absent: Chills, Daytime Sleepiness, Excessive Sweating , Frequent Falls, Headache - EENT Eyes: absent: Change in Vision, Discharge, Exophthalmos, Loss of Peripheral Vision, Sees Flashes Ears: Disequilibrium, Dizziness. absent: Tinnitus, Abnormal Hearing Nose/Mouth/Throat: absent: Nose Pain, Change in Voice, Hoarsness, Mouth Pain, Odynophagia, Sore Throat - Breasts Breasts: absent: Mass, Pain, Nipple Discharge - Cardiovascular Cardiovascular: absent: Chest Pain, Edema, Leg Edema, Orthopnea, Palpitations, Pedal Edema - Respiratory Respiratory: Cough, Dyspnea, Dyspnea on Exertion. absent: Hemoptysis, Chest Congestion, Excessive Mucous Production, Change in Mucous Color - Gastrointestinal Gastrointestinal: absent: Bloating, Coffee Ground Emesis, Dysphagia, Heartburn, Hematochezia, Nausea, Vomiting - Genitourinary Genitourinary: absent: Change in Urinary Stream, Difficulty Urinating, Dysuria, Urinary Urgency - Musculoskeletal Musculoskeletal: absent: Abnormal Gait, Arthralgias, Atrophy, Back Pain, Loss of Height, Muscle Weakness, Myalgias, Numbness - Integumentary Integumentary: absent: Hirsutism, Lesions, Rash, Skin Pain, Skin Ulcer, Sores, Striae, Swelling Past Patient History - Infectious Disease Hx of Infectious Diseases: None - Past Medical History & Family History Past Medical History?: No - Past Social History Smoking Status: Never Smoked - CARDIAC Hx Cardiac Disorders: Yes - PULMONARY Hx Respiratory Disorders: No - NEUROLOGICAL Hx Neurological Disorder: No - HEENT Hx HEENT Problems: No - RENAL Hx Chronic Kidney Disease: No - ENDOCRINE/METABOLIC Hx Endocrine Disorders: No - HEMATOLOGICAL/ONCOLOGICAL Hx Anemia: No - INTEGUMENTARY Hx Dermatological Problems: No - MUSCULOSKELETAL/RHEUMATOLOGICAL Hx Falls: No - GASTROINTESTINAL Hx Gastrointestinal Disorders: Yes Hx Bowel Surgery: Yes (colectomy) Hx Colostomy: Yes (reversed) Other/Comment: COLON CANCER 2011. DVT - GENITOURINARY/GYNECOLOGICAL Hx Genitourinary Disorders: No - PSYCHIATRIC Hx Substance Use: No - SURGICAL HISTORY Hx Surgeries: Yes Other/Comment: partial colectomy/colostomy(2002). closure of colostomy(2004). IVC filter - ANESTHESIA Hx Anesthesia: Yes Hx Anesthesia Reactions: No Hx Malignant Hyperthermia: No Meds Allergies/Adverse Reactions: Allergies Allergy/AdvReac Type Severity Reaction Status Date / Time No Known Allergies Allergy Verified 01/20/18 18:24 Physical Exam - Constitutional Appears: Well - Head Exam Head Exam: absent: NORMAL INSPECTION - Eye Exam Eye Exam: absent: Normal appearance - ENT Exam ENT Exam: absent: Mucous Membranes Moist - Neck Exam Neck exam: Positive for: Full Rom. Negative for: Lymphadenopathy, Normal Inspection, Tenderness - Respiratory Exam Respiratory Exam: Decreased Breath Sounds. absent: Rales, Rhonchi, Wheezes - Cardiovascular Exam Cardiovascular Exam: REGULAR RHYTHM, +S1, +S2. absent: Gallop, JVD, Systolic Murmur - GI/Abdominal Exam GI & Abdominal Exam: Soft. absent: Pulsatile Mass, Tenderness - Extremities Exam Extremities exam: Positive for: full ROM, pedal pulses present. Negative for: calf tenderness, joint swelling, normal capillary refill, pedal edema Results - Vital Signs Recent Vital Signs: Last Vital Signs Temp 97.9 F 01/21/18 07:00 Pulse 89 01/21/18 07:50 Resp 17 01/21/18 07:50 BP 157/90 H 01/21/18 07:00 Pulse Ox 97 01/21/18 07:50 - Labs Result Diagrams: 01/21/18 04:33 01/21/18 04:33 Labs: Laboratory Results - last 24 hr 01/20/18 01/20/18 01/20/18 19:32 19:32 21:22 WBC 6.4 RBC 5.14 Hgb 12.8 Hct 39.5 MCV 77.0 L MCH 24.9 L MCHC 32.3 L RDW 17.0 H Plt Count 161 MPV 8.8 Neut % (Auto) 68.5 Lymph % (Auto) 24.0 [place] % (Auto) 6.3 Eos % (Auto) 0.6 Baso % (Auto) 0.6 Neut # (Auto) 4.4 Lymph # (Auto) 1.5 [place] # (Auto) 0.4 Eos # (Auto) 0.0 Baso # (Auto) 0.0 PT 12.2 INR 1.1 APTT 33 Sodium 142 Potassium 4.3 Chloride 102 Carbon Dioxide 29 Anion Gap 15 BUN 18 H Creatinine 0.9 Est GFR ( Amer) > 60 Est GFR (Non-Af Amer) > 60 Random Glucose 105 Calcium 9.0 Phosphorus Magnesium Total Bilirubin 0.6 AST 28 ALT 23 Alkaline Phosphatase 108 Troponin I 0.2870 H* Total Protein 7.4 Albumin 4.2 Globulin 3.3 Albumin/Globulin Ratio 1.3 Urine Color Urine Clarity Urine pH Ur Specific [place] Urine Protein Urine Glucose (UA) Urine Ketones Urine Blood Urine Nitrate Urine Bilirubin Urine Urobilinogen Ur Leukocyte Esterase Urine WBC (Auto) Urine RBC (Auto) Ur Squamous Epith Cells Urine Bacteria 01/20/18 01/21/18 01/21/18 22:28 04:33 04:33 WBC 6.6 RBC 4.96 Hgb 12.3 Hct 37.8 MCV 76.1 L MCH 24.7 L MCHC 32.4 L RDW 17.0 H Plt Count 139 MPV 7.8 Neut % (Auto) 65.7 Lymph % (Auto) 26.3 [place] % (Auto) 7.2 Eos % (Auto) 0.4 Baso % (Auto) 0.4 Neut # (Auto) 4.3 Lymph # (Auto) 1.7 [place] # (Auto) 0.5 Eos # (Auto) 0.0 Baso # (Auto) 0.0 PT INR APTT Sodium 144 Potassium 4.0 Chloride 108 H Carbon Dioxide 25 Anion Gap 15 BUN 13 Creatinine 0.7 Est GFR ( Amer) > 60 Est GFR (Non-Af Amer) > 60 Random Glucose 122 H Calcium 8.8 Phosphorus 3.8 Magnesium 2.0 Total Bilirubin 0.6 AST 20 ALT 30 Alkaline Phosphatase 84 Troponin I 0.7450 H* Total Protein 6.4 Albumin 3.7 Globulin 2.7 Albumin/Globulin Ratio 1.3 Urine Color Colorless Urine Clarity Clear Urine pH 6.0 Ur Specific [place] 1.015 Urine Protein Negative Urine Glucose (UA) Normal Urine Ketones Negative Urine Blood Negative Urine Nitrate Negative Urine Bilirubin Negative Urine Urobilinogen Normal Ur Leukocyte Esterase Neg Urine WBC (Auto) < 1 Urine RBC (Auto) < 1 Ur Squamous Epith Cells < 1 Urine Bacteria Rare 01/21/18 06:10 WBC RBC Hgb Hct MCV MCH MCHC RDW Plt Count MPV Neut % (Auto) Lymph % (Auto) [place] % (Auto) Eos % (Auto) Baso % (Auto) Neut # (Auto) Lymph # (Auto) [place] # (Auto) Eos # (Auto) Baso # (Auto) PT INR APTT > 400 H* D Sodium Potassium Chloride Carbon Dioxide Anion Gap BUN Creatinine Est GFR ( Amer) Est GFR (Non-Af Amer) Random Glucose Calcium Phosphorus Magnesium Total Bilirubin AST ALT Alkaline Phosphatase Troponin I Total Protein Albumin Globulin Albumin/Globulin Ratio Urine Color Urine Clarity Urine pH Ur Specific [place] Urine Protein Urine Glucose (UA) Urine Ketones Urine Blood Urine Nitrate Urine Bilirubin Urine Urobilinogen Ur Leukocyte Esterase Urine WBC (Auto) Urine RBC (Auto) Ur Squamous Epith Cells Urine Bacteria - EKG Data EKG Interpreted by: Myself EKG shows normal: ST-T waves Rate: Tachycardia Assessment & Plan - Assessment and Plan (Free Text) Assessment: Pulm Embolism; Obesity h/o of Colon cancer On heparin/ supportive care
--- NOTE | 2018-01-21 09:44 | CT ---
Date of service: 01/20/2018 PROCEDURE: CT Chest with contrast (Pulmonary Angiogram) HISTORY: SOB COMPARISON: Comparison made with prior CTA chest 06/19/2017. TECHNIQUE: Axial computed tomography images were obtained of the chest in the pulmonary arterial phase of enhancement. Coronal and sagittal reformatted images were created and reviewed. Intravenous contrast dose: 100 cc Visipaque 320 Radiation dose: Total exam DLP = 451.23 mGy-cm. This CT exam was performed using one or more of the following dose reduction techniques: Automated exposure control, adjustment of the mA and/or kV according to patient size, and/or use of iterative reconstruction technique. . FINDINGS: PULMONARY ARTERIES: There is a large filling defects seen within the distal left main pulmonary artery extending into the upper lobe of branches including the lingula as well as lower lobe branches. . In addition, there is filling defects seen within the right upper lobe and right middle lobe branches. The pulmonary trunk measures approximately 3.26 cm. AORTA: No acute findings. No thoracic aortic aneurysm. Ascending thoracic aorta measures approximately 3.26 cm and descending thoracic aorta measures approximately 2.1 cm. LUNGS: Mild linear atelectasis and or scarring changes right lung base including the right middle lobe and lingular regions. . There is a tiny approximately 3 mm nodular density left lower lobe near the pleural surface along the left posterolateral convexity. Mild right apical pleural thickening and parenchymal scarring PLEURAL SPACES: Unremarkable. No effusion or pneumothorax. HEART: Heart size is within range of normal. No significant pericardial effusion. Questionable mild right heart strain/pulmonary arterial hypertension LYMPH NODES: No no significant mediastinal or hilar adenopathy. There is a moderately large hiatal hernia. BONES, CHEST WALL: Mild multilevel degenerative spondylosis of the thoracic spine. OTHER FINDINGS: Unremarkable. IMPRESSION: There are fairly extensive bilateral upper and lower lobe pulmonary emboli. . Prominent pulmonary trunk with slight straightening of the septum; rule out underlying mild pulmonary arterial hypertension/right heart strain. 3 mm nodular density left lung base. Follow-up CT scan of the chest in the 6-12 months could be performed to assess stability. Linear atelectasis and or scarring changes in the right lung base including the middle lobe and lingular regions. Right pleural thickening. . Moderate-sized hiatal hernia. Fatty hepatic infiltration. Preliminary report provided by overnight radiology service.
[2018-01-21] MEDS: Pantoprazole 40 mg EC Tab PO SCH (10:08)
[2018-01-21] MEDS: Multiple Vitamins Tab PO SCH (10:08)
--- NOTE | 2018-01-21 10:11 | RAD ---
Date of service: 01/21/2018 HISTORY: abdominal pain COMPARISON: Comparison made with CTA chest 01/20/2018 which image the upper abdomen FINDINGS: BOWEL: Normal. No evidence of acute mechanical bowel obstruction. No gross free intraperitoneal air is identified on the limited supine views. BONES: Multilevel degenerative spondylosis of the lower thoracic and lumbar spine. OTHER FINDINGS: There is opacification of the urinary bladder secondary to intravenous contrast excretion from prior CTA chest. IMPRESSION: No evidence of acute mechanical bowel obstruction
--- NOTE | 2018-01-21 13:23 | VASCLAB ---
Date of service: 01/21/2018 PROCEDURE: Lower Extremity Venous Duplex Exam. HISTORY: R/O Acute DVT PRIORS: None. TECHNIQUE: Bilateral common femoral, femoral, popliteal and posterior tibial, peroneal and great saphenous veins were evaluated. Flow was assessed with color Doppler, compressibility, assessment of phasic flow and augmentation response. Report prepared by Mauricio Fitzpatrick, RAY, RVT FINDINGS: RIGHT: 1. Common Femoral Vein: 1.1. Compressibility - Fully compressible: Thrombus - None : Flow - Phasic: Augmentation -Normal: Reflux - None. 2. Femoral Vein: 2.1. Compressibility - Fully compressible: Thrombus - None : Flow - Phasic: Augmentation -Normal: Reflux - None. 3. Popliteal Vein: 3.1. Compressibility - Fully compressible: Thrombus - None : Flow - Phasic: Augmentation -Normal: Reflux - Severe. 4. Posterior Tibial Vein: 4.1. Compressibility - Fully compressible: Thrombus - None: Flow - Phasic: Augmentation -Normal: Reflux - None. 5. Peroneal Vein: 5.1. Compressibility - Fully compressible: Thrombus - None: Flow - Phasic: Augmentation -Normal: Reflux - None. 6. Great Saphenous Vein: 6.1. Compressibility - Fully compressible: Thrombus - None: Flow - Phasic: Augmentation - Normal: Reflux - None. LEFT: 1. Common Femoral Vein: 1.1. Compressibility - Partial: Thrombus - Chronic: Flow - Reduced : Augmentation -Reduced: Reflux - None. 2. Femoral Vein: 2.1. Compressibility - Partial: Thrombus - Chronic: Flow - Reduced : Augmentation -Reduced: Reflux - None. 3. Popliteal Vein: 3.1. Compressibility - Partial: Thrombus - Chronic : Flow - Reduced : Augmentation -Reduced: Reflux - None. 4. Posterior Tibial Vein: 4.1. Compressibility - Fully compressible: Thrombus - None: Flow - Phasic: Augmentation -Normal: Reflux - None. 5. Peroneal Vein: 5.1. Compressibility - Fully compressible: Thrombus - None: Flow - Phasic: Augmentation -Normal: Reflux - None. 6. Great Saphenous Vein: 6.1. Compressibility - Fully compressible: Thrombus - None: Flow - Phasic: Augmentation - Normal: Reflux - None. OTHER FINDINGS: VINCE Herrera notified about the findings. IMPRESSION: Right: No evidence of deep or superficial vein thrombosis of the right lower extremity. Severe valvular incompetence of the right popliteal vein. Intimal wall thickening of the right common femoral, femoral and popliteal veins. 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
--- NOTE | 2018-01-21 13:38 | CP.PCM.CON ---
History of Present Illness - History of Present Illness History of Present Illness: reason for consultation: pulmonary embolism 77-year-old female with history of colon CA status post chemotherapy and surgery , history of DVT who presented to emergency room complaining of shortness of breath started yesterday. CT angiogram of chest showed multiple pulmonary emboli. Patient hemodynamically stable and was started on IV heparin. Patient denies any chest pain, denies cough, denies fever chills. Patient lying comfortably in no acute distress Review of Systems - Review of Systems All systems: reviewed and no additional remarkable complaints except (shortness of breath) Past Patient History - Infectious Disease Hx of Infectious Diseases: None - Past Medical History & Family History Past Medical History?: No - Past Social History Smoking Status: Never Smoked - CARDIAC Hx Cardiac Disorders: Yes - PULMONARY Hx Respiratory Disorders: No - NEUROLOGICAL Hx Neurological Disorder: No - HEENT Hx HEENT Problems: No - RENAL Hx Chronic Kidney Disease: No - ENDOCRINE/METABOLIC Hx Endocrine Disorders: No - HEMATOLOGICAL/ONCOLOGICAL Hx Anemia: No - INTEGUMENTARY Hx Dermatological Problems: No - MUSCULOSKELETAL/RHEUMATOLOGICAL Hx Falls: No - GASTROINTESTINAL Hx Gastrointestinal Disorders: Yes Hx Bowel Surgery: Yes (colectomy) Hx Colostomy: Yes (reversed) Other/Comment: COLON CANCER 2011. DVT - GENITOURINARY/GYNECOLOGICAL Hx Genitourinary Disorders: No - PSYCHIATRIC Hx Substance Use: No - SURGICAL HISTORY Hx Surgeries: Yes Other/Comment: partial colectomy/colostomy(2002). closure of colostomy(2004). IVC filter - ANESTHESIA Hx Anesthesia: Yes Hx Anesthesia Reactions: No Hx Malignant Hyperthermia: No Meds Allergies/Adverse Reactions: Allergies Allergy/AdvReac Type Severity Reaction Status Date / Time No Known Allergies Allergy Verified 01/20/18 18:24 - Medications Medications: Current Medications Apixaban (Eliquis) 10 mg PO BID [facility] Stop: 01/24/18 10:01 Last Admin: 01/21/18 11:56 Dose: 10 mg Aspirin (Aspirin Chewable) 81 mg PO DAILY [facility] Cyclobenzaprine HCl (Flexeril) 10 mg PO HS [facility] Sodium Chloride (Sodium Chloride 0.9%) 1,000 mls @ 50 mls/hr IV .Q20H [facility] Last Admin: 01/21/18 02:23 Dose: 50 mls/hr Multivitamins (Hexavitamin) 1 tab PO DAILY [facility] Last Admin: 01/21/18 10:08 Dose: 1 tab Pantoprazole Sodium (Protonix Ec Tab) 40 mg PO DAILY [facility] Last Admin: 01/21/18 10:08 Dose: 40 mg Physical Exam - Head Exam Head Exam: ATRAUMATIC, NORMOCEPHALIC - ENT Exam ENT Exam: Mucous Membranes Moist - Neck Exam Neck exam: Positive for: Normal Inspection - Respiratory Exam Respiratory Exam: Clear to Auscultation Bilateral - Cardiovascular Exam Cardiovascular Exam: Tachycardia, REGULAR RHYTHM - GI/Abdominal Exam GI & Abdominal Exam: Normal Bowel Sounds - Extremities Exam Extremities exam: Positive for: normal inspection Results - Vital Signs Recent Vital Signs: Last Vital Signs Temp 97.7 F 01/21/18 12:00 Pulse 108 H 01/21/18 12:00 Resp 21 01/21/18 12:00 BP 123/60 01/21/18 12:00 Pulse Ox 99 01/21/18 12:00 - Labs Result Diagrams: 01/21/18 04:33 01/21/18 04:33 Labs: Laboratory Results - last 24 hr 01/20/18 01/20/18 01/20/18 19:32 19:32 21:22 WBC 6.4 RBC 5.14 Hgb 12.8 Hct 39.5 MCV 77.0 L MCH 24.9 L MCHC 32.3 L RDW 17.0 H Plt Count 161 MPV 8.8 Neut % (Auto) 68.5 Lymph % (Auto) 24.0 Long % (Auto) 6.3 Eos % (Auto) 0.6 Baso % (Auto) 0.6 Neut # (Auto) 4.4 Lymph # (Auto) 1.5 Long # (Auto) 0.4 Eos # (Auto) 0.0 Baso # (Auto) 0.0 PT 12.2 INR 1.1 APTT 33 Sodium 142 Potassium 4.3 Chloride 102 Carbon Dioxide 29 Anion Gap 15 BUN 18 H Creatinine 0.9 Est GFR ( Amer) > 60 Est GFR (Non-Af Amer) > 60 Random Glucose 105 Calcium 9.0 Phosphorus Magnesium Total Bilirubin 0.6 AST 28 ALT 23 Alkaline Phosphatase 108 Troponin I 0.2870 H* Total Protein 7.4 Albumin 4.2 Globulin 3.3 Albumin/Globulin Ratio 1.3 Urine Color Urine Clarity Urine pH Ur Specific [place] Urine Protein Urine Glucose (UA) Urine Ketones Urine Blood Urine Nitrate Urine Bilirubin Urine Urobilinogen Ur Leukocyte Esterase Urine WBC (Auto) Urine RBC (Auto) Ur Squamous Epith Cells Urine Bacteria 01/20/18 01/21/18 01/21/18 22:28 04:33 04:33 WBC 6.6 RBC 4.96 Hgb 12.3 Hct 37.8 MCV 76.1 L MCH 24.7 L MCHC 32.4 L RDW 17.0 H Plt Count 139 MPV 7.8 Neut % (Auto) 65.7 Lymph % (Auto) 26.3 [place] % (Auto) 7.2 Eos % (Auto) 0.4 Baso % (Auto) 0.4 Neut # (Auto) 4.3 Lymph # (Auto) 1.7 Long # (Auto) 0.5 Eos # (Auto) 0.0 Baso # (Auto) 0.0 PT INR APTT Sodium 144 Potassium 4.0 Chloride 108 H Carbon Dioxide 25 Anion Gap 15 BUN 13 Creatinine 0.7 Est GFR ( Amer) > 60 Est GFR (Non-Af Amer) > 60 Random Glucose 122 H Calcium 8.8 Phosphorus 3.8 Magnesium 2.0 Total Bilirubin 0.6 AST 20 ALT 30 Alkaline Phosphatase 84 Troponin I 0.7450 H* Total Protein 6.4 Albumin 3.7 Globulin 2.7 Albumin/Globulin Ratio 1.3 Urine Color Colorless Urine Clarity Clear Urine pH 6.0 Ur Specific [place] 1.015 Urine Protein Negative Urine Glucose (UA) Normal Urine Ketones Negative Urine Blood Negative Urine Nitrate Negative Urine Bilirubin Negative Urine Urobilinogen Normal Ur Leukocyte Esterase Neg Urine WBC (Auto) < 1 Urine RBC (Auto) < 1 Ur Squamous Epith Cells < 1 Urine Bacteria Rare 01/21/18 06:10 WBC RBC Hgb Hct MCV MCH MCHC RDW Plt Count MPV Neut % (Auto) Lymph % (Auto) [place] % (Auto) Eos % (Auto) Baso % (Auto) Neut # (Auto) Lymph # (Auto) Long # (Auto) Eos # (Auto) Baso # (Auto) PT INR APTT > 400 H* D Sodium Potassium Chloride Carbon Dioxide Anion Gap BUN Creatinine Est GFR ( Amer) Est GFR (Non-Af Amer) Random Glucose Calcium Phosphorus Magnesium Total Bilirubin AST ALT Alkaline Phosphatase Troponin I Total Protein Albumin Globulin Albumin/Globulin Ratio Urine Color Urine Clarity Urine pH Ur Specific [place] Urine Protein Urine Glucose (UA) Urine Ketones Urine Blood Urine Nitrate Urine Bilirubin Urine Urobilinogen Ur Leukocyte Esterase Urine WBC (Auto) Urine RBC (Auto) Ur Squamous Epith Cells Urine Bacteria Assessment & Plan (1) Bilateral pulmonary embolism Status: Acute Priority: High Comment: continue IV heparin. Venous Doppler of lower extremities. Echocardiogram. Continue ICU observation (2) DVT (deep venous thrombosis) Status: Acute
[2018-01-22] MEDS: Sodium Chloride 0.9% 1,000 ML IV SCH ×2 (04:27→17:05)
[2018-01-22 06:50] LABS: BASO % 0.5 % (0.0-2.0); EOS # 0.1 K/uL (0.0-0.7); EOS % 1.8 % (0.0-4.0); LYMPH # 1.8 K/uL (1.0-4.3); LYMPH % 31.3 % (20.0-40.0); MEAN CELL VOLUME 76.1 fL (81.0-99.0); MEAN CORPUSCULAR HGB CONC 32.8 g/dL (33.0-37.0); MEAN PLATELET VOLUME 8.4 fL (7.2-11.7); MONO # 0.4 K/uL (0.0-0.8); MONO % 7.1 % (0.0-10.0); NEUT # 3.4 K/uL (1.8-7.0); NEUT % 59.3 % (50.0-75.0); NRBC % 0.1 % (0.0-2.0); RBC 4.8 Mil/uL (3.80-5.20); RED CELL DISTRIBUTION WIDTH 16.9 % (11.5-14.5); WHITE BLOOD COUNT 5.7 K/uL (4.8-10.8)
[2018-01-22 07:31] LABS: ALB/GLOB RATIO 1.2 (1.0-2.1); ALBUMIN 3.5 g/dL (3.5-5.0); ALT/SGPT 23 U/L (9-52); AST/SGOT 35 U/L (14-36); BLOOD UREA NITROGEN 12 mg/dL (7-17); CALCIUM 8.4 mg/dl (8.6-10.4); GFR AFRICAN-AMERICAN > 60; GFR NON-AFRICAN AMERICAN > 60
[2018-01-22] MEDS: Multiple Vitamins Tab PO SCH (09:10)
[2018-01-22] MEDS: Pantoprazole 40 mg EC Tab PO SCH (09:11)
--- NOTE | 2018-01-22 14:22 | CP.PCM.PN ---
Subjective - Date & Time of Evaluation Date of Evaluation: 01/22/18 Time of Evaluation: 14:20 - Subjective Subjective: S: Feels better. Objective - Vital Signs/Intake and Output Vital Signs (last 24 hours): Temp Pulse Resp BP Pulse Ox 98.1 F 85 20 150/83 96 01/22/18 07:00 01/22/18 12:00 01/22/18 07:00 01/22/18 07:00 01/22/18 07:00 Intake and Output: 01/22/18 01/22/18 06:59 18:59 Intake Total 750 Output Total 500 Balance 250 - Medications Medications: Current Medications Amlodipine Besylate (Norvasc) 2.5 mg PO DAILY [facility] Last Admin: 01/22/18 09:11 Dose: 2.5 mg Apixaban (Eliquis) 10 mg PO BID [facility] Stop: 01/24/18 10:01 Last Admin: 01/22/18 09:10 Dose: 10 mg Aspirin (Aspirin Chewable) 81 mg PO DAILY [facility] Last Admin: 01/22/18 09:10 Dose: 81 mg Cyclobenzaprine HCl (Flexeril) 10 mg PO HS [facility] Last Admin: 01/21/18 22:06 Dose: 10 mg Sodium Chloride (Sodium Chloride 0.9%) 1,000 mls @ 50 mls/hr IV .Q20H [facility] Last Admin: 01/22/18 04:27 Dose: 50 mls/hr Metoprolol Tartrate (Lopressor) 12.5 mg PO BIDBS [facility] Last Admin: 01/22/18 08:23 Dose: 12.5 mg Multivitamins (Hexavitamin) 1 tab PO DAILY [facility] Last Admin: 01/22/18 09:10 Dose: 1 tab Pantoprazole Sodium (Protonix Ec Tab) 40 mg PO DAILY [facility] Last Admin: 01/22/18 09:11 Dose: 40 mg Rosuvastatin Calcium (Crestor) 10 mg PO HS [facility] Last Admin: 01/21/18 22:06 Dose: 10 mg - Labs Labs: 01/22/18 06:35 01/22/18 06:33 PT 12.2 SECONDS (9.7-12.2) 01/20/18 21:22 INR 1.1 01/20/18 21:22 APTT > 400 SECONDS (21-34) H* D 01/21/18 06:10 - Constitutional Appears: Non-toxic - Head Exam Head Exam: NORMAL INSPECTION - Eye Exam Eye Exam: Normal appearance - Respiratory Exam Respiratory Exam: Clear to Ausculation Bilateral - Cardiovascular Exam Cardiovascular Exam: REGULAR RHYTHM - GI/Abdominal Exam GI & Abdominal Exam: Soft - Rectal Exam Rectal Exam: Deferred - Extremities Exam Extremities Exam: Normal Inspection - Neurological Exam Neurological Exam: Awake Assessment and Plan (1) Bilateral pulmonary embolism Status: Acute (2) H/O malignant neoplasm of colon Status: Chronic - Assessment and Plan (Free Text) Assessment: A/P: Continue medications
--- NOTE | 2018-01-22 15:12 | CARD ---
APPROVED REPORT Date of service: 01/21/2018 EXAM: Two-dimensional and M-mode echocardiogram with Doppler and color Doppler. Other Information Quality : GoodRhythm : INDICATION Abnormal EKG/Arrhythmia Dyspnea Pulmonary Embolism Chest Pain HX OF COLON CA 2D DIMENSIONS IVSd1.0 (0.7-1.1cm)LVDd3.0 (3.9-5.9cm) PWd1.1 (0.7-1.1cm)LVDs2.1 (2.5-4.0cm) FS (%) 29.9 %LVEF (%)65.0 (>50%) M-Mode DIMENSIONS Left Atrium (MM)3.28 (2.5-4.0cm)IVSd0.84 (0.7-1.1cm) Aortic Root3.17 (2.2-3.7cm)LVDd4.03 (4.0-5.6cm) Aortic Cusp Exc.2.21 (1.5-2.0cm)PWd0.74 (0.7-1.1cm) FS (%) 38 %LVDs2.52 (2.0-3.8cm) TAPSE1.6 cmLVEF (%)68 (>50%) Mitral Valve MV E Fzrngnpg28.9cm/sMV A Hrfjtcil80.7cm/sE/A ratio0.7 TDI E/Lateral E'0.0E/Medial E'0.0 Tricuspid Valve TR Peak [id number]/sTR Peak Gr.[id number] LEFT VENTRICLE The left ventricle is normal size. There is normal left ventricular wall thickness. Left ventricle systolic function is normal. The Ejection Fraction is 60-65%. There is normal LV segmental wall motion. Tissue Doppler imaging reveals abnormal left ventricular diastolic dysfunction. RIGHT VENTRICLE The right ventricle is normal size. There is normal right ventricular wall thickness. The right ventricular systolic function is normal. ATRIA The left atrium size is normal. The right atrium size is normal. The interatrial septum is intact with no evidence for an atrial septal defect. AORTIC VALVE The aortic valve is normal in structure. No aortic regurgitation is present. There is no aortic valvular stenosis. There is no aortic valvular vegetation. MITRAL VALVE The mitral valve is mildly thickened but opens well. There is no evidence of mitral valve prolapse. There is no mitral valve stenosis. There is no mitral valve regurgitation noted. TRICUSPID VALVE The tricuspid valve is normal in structure. There is mild tricuspid regurgitation. Right ventricular systolic pressure is estimated at 40-50 mmHg. There is mild-moderate pulmonary hypertension. PULMONIC VALVE The pulmonic valve is not well visualized. There is mild pulmonic valvular regurgitation. GREAT VESSELS The aortic root is normal in size. PERICARDIAL EFFUSION There is no significant pericardial effusion. <Conclusion> Left ventricle systolic function is normal. The Ejection Fraction is 60-65%. Diastolic dysfunction. No aortic regurgitation is present. There is no mitral valve regurgitation noted. There is mild tricuspid regurgitation. There is mild-moderate pulmonary hypertension. There is mild pulmonic valvular regurgitation.
--- NOTE | 2018-01-22 20:52 | CP.PCM.PN ---
Subjective - Date & Time of Evaluation Date of Evaluation: 01/22/18 Time of Evaluation: 17:00 - Subjective Subjective: patient seen and examined Lying comfortably in no acute distress No shortness of breath No chest pain Venous Doppler positive for chronic DVT left femoral and popliteal Started on eliquis Echo showed no right-sided strain pattern, normal ejection fraction Continue present treatment for now Objective - Vital Signs/Intake and Output Vital Signs (last 24 hours): Temp Pulse Resp BP Pulse Ox 98.1 F 93 H 18 120/69 96 01/22/18 15:00 01/22/18 15:31 01/22/18 15:00 01/22/18 15:00 01/22/18 15:31 - Medications Medications: Current Medications Amlodipine Besylate (Norvasc) 2.5 mg PO DAILY [facility] Last Admin: 01/22/18 09:11 Dose: 2.5 mg Apixaban (Eliquis) 10 mg PO BID [facility] Stop: 01/24/18 10:01 Last Admin: 01/22/18 17:58 Dose: 10 mg Aspirin (Aspirin Chewable) 81 mg PO DAILY [facility] Last Admin: 01/22/18 09:10 Dose: 81 mg Cyclobenzaprine HCl (Flexeril) 10 mg PO HS [facility] Last Admin: 01/21/18 22:06 Dose: 10 mg Sodium Chloride (Sodium Chloride 0.9%) 1,000 mls @ 50 mls/hr IV .Q20H [facility] Last Admin: 01/22/18 17:05 Dose: Not Given Metoprolol Tartrate (Lopressor) 12.5 mg PO BIDBS [facility] Last Admin: 01/22/18 17:25 Dose: 12.5 mg Multivitamins (Hexavitamin) 1 tab PO DAILY [facility] Last Admin: 01/22/18 09:10 Dose: 1 tab Pantoprazole Sodium (Protonix Ec Tab) 40 mg PO DAILY [facility] Last Admin: 01/22/18 09:11 Dose: 40 mg Rosuvastatin Calcium (Crestor) 10 mg PO HS [facility] Last Admin: 01/21/18 22:06 Dose: 10 mg - Labs Labs: 01/22/18 06:35 01/22/18 06:33 PT 12.2 SECONDS (9.7-12.2) 01/20/18 21:22 INR 1.1 01/20/18 21:22 APTT > 400 SECONDS (21-34) H* D 01/21/18 06:10 Assessment and Plan (1) Bilateral pulmonary embolism Status: Acute (2) DVT (deep venous thrombosis) Status: Acute
[2018-01-23 09:23] LABS: EOS # 0.1 K/uL (0.0-0.7); EOS % 2.6 % (0.0-4.0); HEMOGLOBIN 12.3 g/dL (11.0-16.0); MONO # 0.4 K/uL (0.0-0.8); NRBC % 0.1 % (0.0-2.0)
[2018-01-23 09:33] LABS: BASO % 0.6 % (0.0-2.0); LYMPH # 1.6 K/uL (1.0-4.3); LYMPH % 30.5 % (20.0-40.0); MEAN CELL VOLUME 76.6 fL (81.0-99.0); MEAN CORPUSCULAR HGB CONC 32.6 g/dL (33.0-37.0); MEAN PLATELET VOLUME 8.7 fL (7.2-11.7); NEUT % 58.3 % (50.0-75.0); RBC 4.91 Mil/uL (3.80-5.20); WHITE BLOOD COUNT 5.2 K/uL (4.8-10.8)
[2018-01-23] MEDS: Multiple Vitamins Tab PO SCH (09:49)
[2018-01-23] MEDS: Pantoprazole 40 mg EC Tab PO SCH (09:49)
[2018-01-23 11:21] LABS: BLOOD UREA NITROGEN 22 mg/dL (7-17); CALCIUM 9.6 mg/dl (8.6-10.4); GFR AFRICAN-AMERICAN > 60; GFR NON-AFRICAN AMERICAN > 60
[2018-01-23] MEDS: Sodium Chloride 0.9% 1,000 ML IV SCH (11:45)
--- NOTE | 2018-01-23 20:13 | CP.PCM.PN ---
Subjective - Date & Time of Evaluation Date of Evaluation: 01/23/18 Time of Evaluation: 19:00 - Subjective Subjective: Pulmonary follow up, Covering Dr Marinelli The patient was Seen/interviewed and examined by me at the bedside, Medical records reviewed and Management issues were discussed and formulated with the house staff. Events reviewed 77 Y/O F with previous history of femoral vein Deep Vein Thrombosis and history of colon cancer in remission S/P chemotherapy and surgery Who was brought to ER by ambulance for evaluation of shortness of breath which occurred in the afternoon today. Patient states that she has history of blood clots and she is taking Aspirin. In the ER, she underwent Chest Ct angiogram showing Multiple pulmonary arterial filling defects consistent with pulmonary emboli. Venous Doppler positive for chronic DVT left femoral and popliteal Echo showed no right-sided strain pattern, normal ejection fraction Pt AAO x3. Alert, follows commands, feeling better Denies any chest pain or shortness of breath Breathing unlabored. Started on eliquis 10 mg PO BID [facility] Objective - Vital Signs/Intake and Output Vital Signs (last 24 hours): Temp Pulse Resp BP Pulse Ox 98.0 F 82 18 119/79 98 01/23/18 15:00 01/23/18 15:00 01/23/18 15:00 01/23/18 15:00 01/23/18 15:00 Intake and Output: 01/23/18 01/24/18 18:59 06:59 Intake Total 400 Balance 400 - Medications Medications: Current Medications Amlodipine Besylate (Norvasc) 2.5 mg PO DAILY [facility] Last Admin: 01/23/18 09:54 Dose: 2.5 mg Apixaban (Eliquis) 10 mg PO BID [facility] Stop: 01/24/18 10:01 Last Admin: 01/23/18 17:49 Dose: 10 mg Aspirin (Aspirin Chewable) 81 mg PO DAILY [facility] Last Admin: 01/23/18 09:49 Dose: 81 mg Cyclobenzaprine HCl (Flexeril) 10 mg PO HS [facility] Last Admin: 01/22/18 22:30 Dose: 10 mg Sodium Chloride (Sodium Chloride 0.9%) 1,000 mls @ 50 mls/hr IV .Q20H [facility] Last Admin: 01/23/18 11:45 Dose: Not Given [facility] Last Admin: 01/23/18 17:30 Dose: 12.5 mg Multivitamins (Hexavitamin) 1 tab PO DAILY [facility] Last Admin: 01/23/18 09:49 Dose: 1 tab Pantoprazole Sodium (Protonix Ec Tab) 40 mg PO DAILY [facility] Last Admin: 01/23/18 09:49 Dose: 40 mg Rosuvastatin Calcium (Crestor) 10 mg PO HS [facility] Last Admin: 01/22/18 22:30 Dose: 10 mg - Labs Labs: 01/23/18 09:09 01/23/18 09:41 PT 12.2 SECONDS (9.7-12.2) 01/20/18 21:22 INR 1.1 01/20/18 21:22 APTT > 400 SECONDS (21-34) H* D 01/21/18 06:10 - Constitutional Appears: Well, Non-toxic, No Acute Distress - Head Exam Head Exam: ATRAUMATIC, NORMAL INSPECTION - Eye Exam Eye Exam: EOMI, Normal appearance. absent: Conjunctival injection - ENT Exam ENT Exam: Mucous Membranes Moist - Neck Exam Neck Exam: Full ROM, Normal Inspection. absent: Tenderness - Respiratory Exam Respiratory Exam: Clear to Ausculation Bilateral, NORMAL BREATHING PATTERN. absent: Accessory Muscle Use, Chest Wall Tenderness, Decreased Breath Sounds, Prolonged Expiratory Phase, Rales, Rhonchi, Wheezes, Respiratory Distress - Cardiovascular Exam Cardiovascular Exam: REGULAR RHYTHM, RRR, +S1, +S2. absent: Clicks, Diastolic murmur, JVD - GI/Abdominal Exam GI & Abdominal Exam: Soft, Normal Bowel Sounds. absent: Bruit, Distended, Firm , Guarding, Rigid - Back Exam Back Exam: absent: CVA tenderness (L), CVA tenderness (R) - Neurological Exam Neurological Exam: Alert, Awake, Oriented x3. absent: Altered Assessment and Plan (1) Bilateral pulmonary embolism Status: Acute (2) Abnormal EKG Status: Acute (3) Atypical chest pain Status: Acute (4) Dvt femoral (deep venous thrombosis) Status: Acute - Assessment and Plan (Free Text) Assessment: Acute bilateral PE in the setting of colon cancer Started on Apixaban (Eliquis) 10 mg PO BID Treat with full A/C life long Rx is recommended.
[2018-01-24 00:13] VITALS: RESP 20
[2018-01-24 07:23] LABS: BASO % 0.8 % (0.0-2.0); EOS # 0.1 K/uL (0.0-0.7); EOS % 2.4 % (0.0-4.0); HEMOGLOBIN 11.6 g/dL (11.0-16.0); LYMPH # 1.2 K/uL (1.0-4.3); LYMPH % 24.2 % (20.0-40.0); MEAN CELL VOLUME 76.5 fL (81.0-99.0); MEAN CORPUSCULAR HGB CONC 32.8 g/dL (33.0-37.0); MEAN PLATELET VOLUME 8.2 fL (7.2-11.7); MONO # 0.4 K/uL (0.0-0.8); MONO % 7.5 % (0.0-10.0); NEUT # 3.3 K/uL (1.8-7.0); NEUT % 65.1 % (50.0-75.0); NRBC % 0.1 % (0.0-2.0); RBC 4.65 Mil/uL (3.80-5.20); RED CELL DISTRIBUTION WIDTH 16.3 % (11.5-14.5); WHITE BLOOD COUNT 5.1 K/uL (4.8-10.8)
[2018-01-24 07:51] LABS: BLOOD UREA NITROGEN 10 mg/dL (7-17); CALCIUM 8.6 mg/dl (8.6-10.4); GFR AFRICAN-AMERICAN > 60; GFR NON-AFRICAN AMERICAN > 60
--- NOTE | 2018-01-24 08:39 | CP.PCM.PN ---
Subjective - Date & Time of Evaluation Date of Evaluation: 01/24/18 Time of Evaluation: 08:34 - Subjective Subjective: Pt feels well, no more palpitation. No episode of dizziness. No CP, no SOB, no edema, no cough Objective - Vital Signs/Intake and Output Vital Signs (last 24 hours): Temp Pulse Resp BP Pulse Ox 97.7 F 84 20 125/84 95 01/24/18 07:01 01/24/18 07:01 01/24/18 07:01 01/24/18 07:01 01/24/18 07:01 - Medications Medications: Current Medications Amlodipine Besylate (Norvasc) 2.5 mg PO DAILY [facility] Last Admin: 01/23/18 09:54 Dose: 2.5 mg Apixaban (Eliquis) 10 mg PO BID [facility] Stop: 01/24/18 10:01 Last Admin: 01/23/18 17:49 Dose: 10 mg Aspirin (Aspirin Chewable) 81 mg PO DAILY [facility] Last Admin: 01/23/18 09:49 Dose: 81 mg Cyclobenzaprine HCl (Flexeril) 10 mg PO HS [facility] Last Admin: 01/23/18 21:53 Dose: 10 mg [facility] Last Admin: 01/23/18 17:30 Dose: 12.5 mg Pantoprazole Sodium (Protonix Ec Tab) 40 mg PO DAILY [facility] Last Admin: 01/23/18 09:49 Dose: 40 mg Rosuvastatin Calcium (Crestor) 10 mg PO HS [facility] Last Admin: 01/23/18 21:53 Dose: 10 mg - Labs Labs: 01/24/18 07:09 01/24/18 07:09 PT 12.2 SECONDS (9.7-12.2) 01/20/18 21:22 INR 1.1 01/20/18 21:22 APTT > 400 SECONDS (21-34) H* D 01/21/18 06:10 - Constitutional Appears: No Acute Distress - Eye Exam Eye Exam: Normal appearance - ENT Exam ENT Exam: Mucous Membranes Moist - Neck Exam Neck Exam: Full ROM. absent: Lymphadenopathy, Normal Inspection, Thyromegaly - Respiratory Exam Respiratory Exam: Clear to Ausculation Bilateral. absent: Rales, Rhonchi, Wheezes - Cardiovascular Exam Cardiovascular Exam: +S1, +S2. absent: Gallop, REGULAR RHYTHM, JVD - GI/Abdominal Exam GI & Abdominal Exam: Soft. absent: Tenderness, Mass - Extremities Exam Extremities Exam: Full ROM, Normal Capillary Refill. absent: Calf Tenderness, Joint Swelling, Pedal Edema Assessment and Plan - Assessment and Plan (Free Text) Assessment: (+) Cardiac Enzyme; Pulmonary Embolism cardio eval; Cont Eliquis Cont other eds
[2018-01-24] MEDS: Pantoprazole 40 mg EC Tab PO SCH (09:06)
--- NOTE | 2018-01-24 15:06 | CP.PCM.PN ---
Subjective - Date & Time of Evaluation Date of Evaluation: 01/24/18 Time of Evaluation: 12:00 - Subjective Subjective: the patient seen and examined No shortness of breath or cough Denies any chest pain on ELIQUIS Objective - Vital Signs/Intake and Output Vital Signs (last 24 hours): Temp Pulse Resp BP Pulse Ox 97.7 F 84 20 125/84 95 01/24/18 07:01 01/24/18 07:01 01/24/18 07:01 01/24/18 07:01 01/24/18 07:01 - Medications Medications: Current Medications Amlodipine Besylate (Norvasc) 2.5 mg PO DAILY [facility] Last Admin: 01/24/18 13:10 Dose: 2.5 mg Apixaban (Eliquis) 10 mg PO BID [facility] Stop: 01/28/18 22:00 Aspirin (Aspirin Chewable) 81 mg PO DAILY [facility] Last Admin: 01/24/18 09:06 Dose: 81 mg Cyclobenzaprine HCl (Flexeril) 10 mg PO HS [facility] Last Admin: 01/23/18 21:53 Dose: 10 mg Metoprolol Tartrate (Lopressor) 12.5 mg PO BIDBS [facility] Last Admin: 01/24/18 08:54 Dose: 12.5 mg Pantoprazole Sodium (Protonix Ec Tab) 40 mg PO DAILY [facility] Last Admin: 01/24/18 09:06 Dose: 40 mg Rosuvastatin Calcium (Crestor) 10 mg PO HS [facility] Last Admin: 01/23/18 21:53 Dose: 10 mg - Labs Labs: 01/24/18 07:09 01/24/18 07:09 PT 12.2 SECONDS (9.7-12.2) 01/20/18 21:22 INR 1.1 01/20/18 21:22 APTT > 400 SECONDS (21-34) H* D 01/21/18 06:10 - Head Exam Head Exam: ATRAUMATIC, NORMOCEPHALIC - ENT Exam ENT Exam: Mucous Membranes Moist - Neck Exam Neck Exam: Normal Inspection - Respiratory Exam Respiratory Exam: Clear to Ausculation Bilateral - Cardiovascular Exam Cardiovascular Exam: REGULAR RHYTHM - GI/Abdominal Exam GI & Abdominal Exam: Soft, Normal Bowel Sounds - Extremities Exam Extremities Exam: Normal Inspection Assessment and Plan (1) Bilateral pulmonary embolism Status: Acute (2) DVT (deep venous thrombosis) Status: Acute
[2018-01-24 16:51] LABS: TROPONIN I 0.031 ng/mL (0.00-0.120)
[2018-01-24 17:42] LABS: CK-MB 1.07 ng/mL (0.0-3.38)
--- NOTE | 2018-01-24 23:15 | CP.PCM.CON ---
History of Present Illness - History of Present Illness History of Present Illness: 77 F consulted for positive Troponin level Denies chest pain and cardiac history Past Patient History - Infectious Disease Hx of Infectious Diseases: None - Past Medical History & Family History Past Medical History?: No - Past Social History Smoking Status: Never Smoked - CARDIAC Hx Cardiac Disorders: Yes - PULMONARY Hx Respiratory Disorders: No - NEUROLOGICAL Hx Neurological Disorder: No - HEENT Hx HEENT Problems: No - RENAL Hx Chronic Kidney Disease: No - ENDOCRINE/METABOLIC Hx Endocrine Disorders: No - HEMATOLOGICAL/ONCOLOGICAL Hx Anemia: No - INTEGUMENTARY Hx Dermatological Problems: No - MUSCULOSKELETAL/RHEUMATOLOGICAL Hx Falls: No - GASTROINTESTINAL Hx Gastrointestinal Disorders: Yes Hx Bowel Surgery: Yes (colectomy) Hx Colostomy: Yes (reversed) Other/Comment: COLON CANCER 2011. DVT - GENITOURINARY/GYNECOLOGICAL Hx Genitourinary Disorders: No - PSYCHIATRIC Hx Substance Use: No - SURGICAL HISTORY Hx Surgeries: Yes Other/Comment: partial colectomy/colostomy(2002). closure of colostomy(2004). IVC filter - ANESTHESIA Hx Anesthesia: Yes Hx Anesthesia Reactions: No Hx Malignant Hyperthermia: No Meds Allergies/Adverse Reactions: Allergies Allergy/AdvReac Type Severity Reaction Status Date / Time No Known Allergies Allergy Verified 01/20/18 18:24 - Medications Medications: Current Medications Amlodipine Besylate (Norvasc) 2.5 mg PO DAILY [facility] Last Admin: 01/24/18 13:10 Dose: 2.5 mg Apixaban (Eliquis) 10 mg PO BID [facility] Stop: 01/28/18 22:00 Last Admin: 01/24/18 17:49 Dose: 10 mg Aspirin (Aspirin Chewable) 81 mg PO DAILY [facility] Last Admin: 01/24/18 09:06 Dose: 81 mg Cyclobenzaprine HCl (Flexeril) 10 mg PO HS [facility] Last Admin: 01/24/18 21:12 Dose: 10 mg Metoprolol Tartrate (Lopressor) 12.5 mg PO BIDBS [facility] Last Admin: 01/24/18 17:30 Dose: 12.5 mg Pantoprazole Sodium (Protonix Ec Tab) 40 mg PO DAILY [facility] Last Admin: 01/24/18 09:06 Dose: 40 mg Rosuvastatin Calcium (Crestor) 10 mg PO HS [facility] Last Admin: 01/24/18 21:12 Dose: 10 mg Results - Vital Signs Recent Vital Signs: Last Vital Signs Temp 98.2 F 01/24/18 15:00 Pulse 78 01/24/18 16:00 Resp 20 01/24/18 15:00 BP 122/71 01/24/18 15:00 Pulse Ox 96 01/24/18 15:00 - Labs Result Diagrams: 01/24/18 07:09 01/24/18 07:09 Labs: Laboratory Results - last 24 hr 01/24/18 01/24/18 01/24/18 07:09 07:09 16:24 WBC 5.1 RBC 4.65 Hgb 11.6 Hct 35.5 MCV 76.5 L MCH 25.0 L MCHC 32.8 L RDW 16.3 H Plt Count 130 MPV 8.2 Neut % (Auto) 65.1 Lymph % (Auto) 24.2 [place] % (Auto) 7.5 Eos % (Auto) 2.4 Baso % (Auto) 0.8 Neut # (Auto) 3.3 Lymph # (Auto) 1.2 [place] # (Auto) 0.4 Eos # (Auto) 0.1 Baso # (Auto) 0.0 Sodium 141 Potassium 4.2 Chloride 107 Carbon Dioxide 29 Anion Gap 9 L BUN 10 Creatinine 0.7 Est GFR ( Amer) > 60 Est GFR (Non-Af Amer) > 60 Random Glucose 90 Calcium 8.6 Total Creatine Kinase 71 CK-MB (Mass) 1.07 Troponin I 0.0310 Assessment & Plan - Assessment and Plan (Free Text) Assessment: Pulmonary embolism Trop elevation likely due to PE Will check ECHO
[2018-01-25 07:55] LABS: BASO # 0.1 K/uL (0.0-0.2); BASO % 1.8 % (0.0-2.0); EOS # 0.1 K/uL (0.0-0.7); EOS % 2.2 % (0.0-4.0); HEMOGLOBIN 12.8 g/dL (11.0-16.0); LYMPH # 1.4 K/uL (1.0-4.3); LYMPH % 26.5 % (20.0-40.0); MEAN CELL VOLUME 76.9 fL (81.0-99.0); MEAN CORPUSCULAR HEMOGLOBIN 24.8 pg (27.0-31.0); MEAN CORPUSCULAR HGB CONC 32.2 g/dL (33.0-37.0); MEAN PLATELET VOLUME 8.8 fL (7.2-11.7); MONO # 0.4 K/uL (0.0-0.8); MONO % 7.1 % (0.0-10.0); NEUT # 3.3 K/uL (1.8-7.0); NEUT % 62.4 % (50.0-75.0); NRBC % 0.2 % (0.0-2.0); RBC 5.14 Mil/uL (3.80-5.20); RED CELL DISTRIBUTION WIDTH 16.8 % (11.5-14.5); WHITE BLOOD COUNT 5.3 K/uL (4.8-10.8)
--- NOTE | 2018-01-25 08:09 | CP.PCM.PN ---
Subjective - Date & Time of Evaluation Date of Evaluation: 01/25/18 Time of Evaluation: 07:45 - Subjective Subjective: Pt no complain; no CP, no SOB, no edema, no cough. Walk with PT and states was able to walk > 200 feet (around the corridor). No constipation, no n/v Objective - Vital Signs/Intake and Output Vital Signs (last 24 hours): Temp Pulse Resp BP Pulse Ox 98.4 F 84 20 112/77 97 01/25/18 00:00 01/25/18 00:17 01/25/18 00:00 01/25/18 00:00 01/25/18 00:00 - Medications Medications: Current Medications Amlodipine Besylate (Norvasc) 2.5 mg PO DAILY [facility] Last Admin: 01/24/18 13:10 Dose: 2.5 mg Apixaban (Eliquis) 10 mg PO BID [facility] Stop: 01/28/18 22:00 Last Admin: 01/24/18 17:49 Dose: 10 mg Aspirin (Aspirin Chewable) 81 mg PO DAILY [facility] Last Admin: 01/24/18 09:06 Dose: 81 mg Cyclobenzaprine HCl (Flexeril) 10 mg PO HS [facility] Last Admin: 01/24/18 21:12 Dose: 10 mg Metoprolol Tartrate (Lopressor) 12.5 mg PO BIDBS [facility] Last Admin: 01/24/18 17:30 Dose: 12.5 mg Pantoprazole Sodium (Protonix Ec Tab) 40 mg PO DAILY [facility] Last Admin: 01/24/18 09:06 Dose: 40 mg Rosuvastatin Calcium (Crestor) 10 mg PO HS [facility] Last Admin: 01/24/18 21:12 Dose: 10 mg - Labs Labs: 01/25/18 07:47 01/24/18 07:09 PT 12.2 SECONDS (9.7-12.2) 01/20/18 21:22 INR 1.1 01/20/18 21:22 APTT > 400 SECONDS (21-34) H* D 01/21/18 06:10 - Constitutional Appears: No Acute Distress - Eye Exam Eye Exam: Normal appearance - ENT Exam ENT Exam: Mucous Membranes Moist - Neck Exam Neck Exam: Full ROM. absent: Lymphadenopathy - Respiratory Exam Respiratory Exam: Clear to Ausculation Bilateral
[2018-01-25 08:12] VITALS: BP 130/82; PULSE 85; TEMP 98.3; O2SAT 93
--- NOTE | 2018-01-25 08:26 | CP.PCM.PN ---
Subjective - Date & Time of Evaluation Date of Evaluation: 01/25/18 Time of Evaluation: 07:45 - Subjective Subjective: Pt no complain; No CP, no SOB, no edema, no cough Pt walk w/ PT around the corridor Cardio noted reviewed & appreciated Objective - Vital Signs/Intake and Output Vital Signs (last 24 hours): Temp Pulse Resp BP Pulse Ox 98.3 F 85 20 130/82 93 L 01/25/18 07:11 01/25/18 07:11 01/25/18 07:11 01/25/18 07:11 01/25/18 07:11 - Medications Medications: Current Medications Amlodipine Besylate (Norvasc) 2.5 mg PO DAILY [facility] Last Admin: 01/24/18 13:10 Dose: 2.5 mg Apixaban (Eliquis) 10 mg PO BID [facility] Stop: 01/28/18 22:00 Last Admin: 01/24/18 17:49 Dose: 10 mg Aspirin (Aspirin Chewable) 81 mg PO DAILY [facility] Last Admin: 01/24/18 09:06 Dose: 81 mg Cyclobenzaprine HCl (Flexeril) 10 mg PO HS [facility] Last Admin: 01/24/18 21:12 Dose: 10 mg Metoprolol Tartrate (Lopressor) 12.5 mg PO BIDBS [facility] Last Admin: 01/24/18 17:30 Dose: 12.5 mg Pantoprazole Sodium (Protonix Ec Tab) 40 mg PO DAILY [facility] Last Admin: 01/24/18 09:06 Dose: 40 mg Rosuvastatin Calcium (Crestor) 10 mg PO HS [facility] Last Admin: 01/24/18 21:12 Dose: 10 mg - Labs Labs: 01/25/18 07:47 01/24/18 07:09 PT 12.2 SECONDS (9.7-12.2) 01/20/18 21:22 INR 1.1 01/20/18 21:22 APTT > 400 SECONDS (21-34) H* D 01/21/18 06:10 - Constitutional Appears: No Acute Distress - Eye Exam Eye Exam: Normal appearance - ENT Exam ENT Exam: Mucous Membranes Moist - Neck Exam Neck Exam: Full ROM. absent: Lymphadenopathy - Respiratory Exam Respiratory Exam: Clear to Ausculation Bilateral. absent: Rales, Rhonchi, Wheezes - Cardiovascular Exam Cardiovascular Exam: +S1, +S2. absent: Gallop, REGULAR RHYTHM, JVD, Murmur - GI/Abdominal Exam GI & Abdominal Exam: Soft. absent: Tenderness - Extremities Exam Extremities Exam: Full ROM. absent: Calf Tenderness, Joint Swelling, Normal Capillary Refill, Pedal Edema Assessment and Plan - Assessment and Plan (Free Text) Plan: (+) Troponin; massive PE; Morbid obesity HTM Cont meds Discharge is okay w/ Cardio
[2018-01-25] MEDS: Pantoprazole 40 mg EC Tab PO SCH (09:09)
--- NOTE | 2018-01-25 11:30 | CP.PCM.PN ---
Subjective - Date & Time of Evaluation Date of Evaluation: 01/25/18 Time of Evaluation: 11:29 Objective - Vital Signs/Intake and Output Vital Signs (last 24 hours): Temp Pulse Resp BP Pulse Ox 98.3 F 85 20 130/82 93 L 01/25/18 07:11 01/25/18 07:11 01/25/18 07:11 01/25/18 07:11 01/25/18 07:11 - Medications Medications: Current Medications Apixaban (Eliquis) 10 mg PO BID [facility] Stop: 01/28/18 22:00 Last Admin: 01/25/18 09:09 Dose: 10 mg Aspirin (Aspirin Chewable) 81 mg PO DAILY [facility] Last Admin: 01/25/18 09:09 Dose: 81 mg Cyclobenzaprine HCl (Flexeril) 10 mg PO HS [facility] Last Admin: 01/24/18 21:12 Dose: 10 mg Lisinopril (Zestril) 10 mg PO DAILY [facility] Last Admin: 01/25/18 09:09 Dose: 10 mg Pantoprazole Sodium (Protonix Ec Tab) 40 mg PO DAILY [facility] Last Admin: 01/25/18 09:09 Dose: 40 mg Rosuvastatin Calcium (Crestor) 10 mg PO HS [facility] Last Admin: 01/24/18 21:12 Dose: 10 mg - Labs Labs: 01/25/18 07:47 01/24/18 07:09 PT 12.2 SECONDS (9.7-12.2) 01/20/18 21:22 INR 1.1 01/20/18 21:22 APTT > 400 SECONDS (21-34) H* D 01/21/18 06:10 Assessment and Plan - Assessment and Plan (Free Text) Assessment: FOLLOW UP WITH DR MORFIN AT HIS OFFICE IN 1-2 WEEK ---CALL FOR APPOINTMENT FOLLOW UP WITH DR MARION IN HIS OFFICE WITHIN A MONTH ---CALL FOR APPOINTMENT CONTINUE HOME MEDICATION NEW PRESCRIPTION GIVEN ELIQUIS 5 MG PO TWICE A DAY ( 2 TAB BY MOUTH TWICE A DAY FOR THE FIRST 3 DAYS THEN 1 TAB BY MOUTH TWICE A DAY FOR THE REMAINING) CRESTOR 10 MG ONE TAB BY MOUTH AT NIGHT LISINOPRIL 10 MG BY MOUTH DAILY ACTIVITY TOLERATED CALL DR MORFIN OR GO TO THE EMERGENCY ROOM IF SYMPTOMS RETURN OR WORSENING
== END 2018-01-25 12:40 | disposition home or self-care (01) | DRG 176 ==
LOC: C.ER 18:03 → C.9I 22:11 → C.5S 01-22 06:55
PROVIDERS: ADMIT Internal Medicine; ATTEND Internal Medicine
DX: I26.99 Other pulmonary embolism without acute cor pulmonale (principal); I82.512 Chronic embolism and thrombosis of left femoral vein; Z68.42 Body mass index [BMI] 45.0-49.9, adult; E66.01 Morbid (severe) obesity due to excess calories; Z85.038 Personal history of other malignant neoplasm of large intestine; R07.89 Other chest pain